=== PATIENT | male | born 1985 | race Two or more races ===

== ENCOUNTER 2016-05-23 09:36 | Inpatient (IN) | payer OTHER ==
[2016-05-23 10:19] VITALS: BMI 22.4
--- NOTE | 2016-05-23 12:24 | HP ---
COWS - Scale Resting Pulse: 1= [place] 81-100 Sweatin=Flushed/Facial Moisture Restless Observation: 1= Difficult to Sit Still Pupil Size: 0= Normal to Room Light Bone or Joint Aches: 2= Severe Diffuse Aches Runny Nose/ Eye Tearin= Runny Nose/Eyes GI Upset > 30mins: 2= Nausea/Diarrhea Tremor Observation: 2= Slight Tremor Visible Yawning Observation: 2= >3x During Session Anxiety or Irritability: 2=Irritable/Anxious Goose Flesh Skin: 3=Piloerection COWS Score: 19 CIWA Score - CIWA Score Nausea/Vomitin-Mild Nausea/No Vomiting Muscle Tremors: 4-Moderate,w/Arms Extend Anxiety: 4-Mod. Anxious/Guarded Agitation: 4-Moderately Restless Paroxysmal Sweats: 3 Orientation: 0-Oriented Tacttile Disturbances: 0-None Auditory Disturbances: 0-None Visual Disturbances: 0-None Headache: 2-Mild CIWA-Ar Total Score: 18 Admission ROS BHS - HPI Chief Complaint: I need help. Allergies/Adverse Reactions: Allergies Allergy/AdvReac Type Severity Reaction Status Date / Time peanut Allergy Intermediate Swelling Verified 05/23/16 11:21 NKDA Allergy Uncoded 05/23/16 11:21 History of Present Illness: pt is a 31yr old male with a history of alcohol and heroin dependence seeking detox for treatment. Exam Limitations: No Limitations - Ebola screening Have you traveled outside of the country in the last 21 days: No Have you had contact with anyone from an Ebola affected area: No Have you been sick,other than usual withdrawal symptoms: No Do you have a fever: No - Review of Systems Constitutional: Chills, Diaphoresis, Loss of Appetite, Night Sweats, Changes in sleep, Unintentional Wgt. Loss EENT: reports: Tearing, Nose Congestion, Other (rash with irritation noted to ear canal.) Respiratory: reports: Cough Cardiac: reports: No Symptoms Reported GI: reports: Constipated, Diarrhea, Nausea, Poor Appetite, Poor Fluid Intake : reports: No Symptoms Reported Musculoskeletal: reports: Back Pain, Joint Pain, Muscle Pain Integumentary: reports: Flushing, Rash (to face.), Sweating Neuro: reports: Headache, Tingling, Tremors Endocrine: reports: Excessive Sweating, Flushing Hematology: reports: No Symptoms Reported Psychiatric: reports: Judgement Intact, Mood/Affect Appropiate, Orientated x3, Agitated, Anxious Other Systems: Reviewed and Negative Patient History - Patient Medical History Hx Anemia: No Hx Asthma: No Hx Chronic Obstructive Pulmonary Disease (COPD): No Hx Cancer: No Hx Cardiac Disorders: No Hx Congestive Heart Failure: No Hx Hypertension: No Hx Hypercholesterolemia: No Hx Pacemaker: No HX Cerebrovascular Accident: No Hx Seizures: No Hx Dementia: No Hx Diabetes: No Hx Gastrointestinal Disorders: No Hx Liver Disease: No Hx Genitourinary Disorders: No Hx Sexually Transmitted Disorders: No Hx Renal Disease (ESRD): No Hx Thyroid Disease: No Hx Human Immunodeficiency Virus (HIV): No (negative) Hx Hepatitis C: No (negative) Hx Depression: Yes Hx Suicide Attempt: No (denies) Hx Bipolar Disorder: No Hx Schizophrenia: No - Patient Surgical History Past Surgical History: No Hx Neurologic Surgery: No Hx Cataract Extraction: No Hx Cardiac Surgery: No Hx Lung Surgery: No Hx Breast Surgery: No Hx Breast Biopsy: No Hx Abdominal Surgery: No Hx Appendectomy: No Hx Cholecystectomy: No Hx Genitourinary Surgery: No Hx Section: No Hx Orthopedic Surgery: No Anesthesia Reaction: No - PPD History Previous Implant?: Yes Documented Results: Negative w/proof Implanted On Prior R Admission?: Yes Date: 02/04/16 Results: 0 mm PPD to be Administered?: No - Reproductive History Patient is a Female of Child Bearing Age (11 -55 yrs old): No - Smoking Cessation Smoking history: Current every day smoker Have you smoked in the past 12 months: Yes Aproximately how many cigarettes per day: 7 Hx Chewing Tobacco Use: No Initiated information on smoking cessation: Yes 'Breaking Loose' booklet given: 05/23/16 - Substance & Tx. History Hx Alcohol Use: Yes Hx Substance Use: Yes Substance Use Type: Alcohol, Heroin - Substances Abused Heroin Route: Inhalation Frequency: Daily Amount used: 15 bags Age of first use: 21 Date of Last Use: 05/22/16 Alcohol-beer/vodka Route: Oral Frequency: Daily Amount used: 2-6 pks./1 pt. Age of first use: 15 Date of Last Use: 05/22/16 Family Disease History - Family Disease History Family Disease History: CA: Mother (breast CA; alcohol depenent ), Other: Father , Mother Admission Physical Exam BHS - Vital Signs Vital Signs: Vital Signs - 24 hr 05/23/16 10:18 Temperature 97.0 F L Pulse Rate 82 Respiratory 18 Rate Blood Pressure 134/76 - Physical General Appearance: Yes: Appropriately Dressed, Moderate Distress, Tremorous, Irritable, Sweating, Anxious HEENTM: Yes: Normal Voice, Nasal Congestion, Rhinorrhea Respiratory: Yes: Lungs Clear, Normal Breath Sounds, No Respiratory Distress Neck: Yes: Within Normal Limits Breast: Yes: Within Normal Limits Cardiology: Yes: Regular Rhythm, Regular Rate, S1, S2 Abdominal: Yes: Normal Bowel Sounds, Non Tender, Soft Genitourinary: Yes: Within Normal Limits Back: Yes: Normal Inspection Musculoskeletal: Yes: full range of Motion, Back pain, Muscle Pain Extremities: Yes: Non-Tender, Tremors Neurological: Yes: Fully Oriented, Alert, Normal Response Integumentary: Yes: Normal Color, Diaphoresis Lymphatic: Yes: Within Normal Limits - Diagnostic (1) Rash of face Current Visit: Yes Status: Acute (2) Alcohol dependence with uncomplicated withdrawal Current Visit: Yes Status: Chronic (3) Nicotine dependence Current Visit: Yes Status: Chronic Qualifiers: Nicotine product type: cigarettes Substance use status: uncomplicated Qualified Code(s): F17.210 - Nicotine dependence, cigarettes, uncomplicated (4) Opioid dependence with withdrawal Current Visit: Yes Status: Chronic (5) Skin rash Current Visit: Yes Status: Acute Comment: to ear canal Cleared for Admission [facility] - Detox or Rehab [facility] Level of Care: Medically Managed Detox Regimen/Protocol: Methadone/Librium [facility] Breath Alcohol Content Breath Alcohol Content: 0 Urine Drug Screen - Results Drug Screen Negative: No Urine Drug Screen Results: OPI-Opiates
[2016-05-23] MEDS ORDERED: chlordiazePOXIDE HCL 25 MG CAPSULE PO ONE (12:30)
[2016-05-23] MEDS ORDERED: guaiFENesin/D-METHORPHAN HB 10 ML UNIT-DOSE CUPS PO PRN (12:30)
[2016-05-23] MEDS ORDERED: NICOTINE POLACRILEX 4 MG GUM BC PRN (12:30)
[2016-05-23] MEDS ORDERED: MENTHOL/PHENOL 1 EACH UD MM PRN (12:30)
[2016-05-23] MEDS ORDERED: ACETAMINOPHEN 325 MG TABLET (FP) PO PRN (12:30)
[2016-05-23] MEDS ORDERED: P-EPHED 60MG/TRIPROLIDI 2.5MG TABLET PO PRN (12:30)
[2016-05-23] MEDS ORDERED: METHADONE HCL 10 MG TABLET (FOR DETOX USE ONLY) PO ONE ×2 (12:30→23:00)
[2016-05-23] MEDS ORDERED: IBUPROFEN 400 MG TABLET (FP) PO PRN (12:30)
[2016-05-23] MEDS ORDERED: MAGNESIUM HYDROX 2400MG/30ML ORAL SUSPENSION 30 ML CUP PO PRN (12:30)
[2016-05-23] MEDS ORDERED: MAGNESIUM CITRATE 300 ML BOTTLE PO PRN (12:30)
[2016-05-23] MEDS ORDERED: chlordiazePOXIDE HCL 25 MG CAPSULE PO PRN (12:30)
[2016-05-23] MEDS ORDERED: TRIMETHOBENZAMIDE HCL 300 MG CAPSULE PO PRN (12:31)
[2016-05-23] MEDS ORDERED: CYCLOBENZAPRINE HCL 10 MG TABLET (FP) PO ONE (15:48)
[2016-05-23] MEDS ORDERED: CYCLOBENZAPRINE HCL 10 MG TABLET (FP) ONE (15:55)
--- NOTE | 2016-05-23 16:20 | EKG ---
Test Reason : Blood Pressure : / mmHG Vent. Rate : 073 BPM Atrial Rate : 073 BPM P-R Int : 156 ms QRS Dur : 088 ms QT Int : 402 ms P-R-T Axes : 049 020 025 degrees QTc Int : 442 ms NORMAL SINUS RHYTHM WITH SINUS ARRHYTHMIA NORMAL ECG NO PREVIOUS ECGS AVAILABLE Confirmed by YOSELIN WEST, KODY ([id number]) on 05/23/2016 4:19:47 PM Referred By: Chris Hallman Confirmed By:KODY WYATT MD
[2016-05-23] MEDS: chlordiazePOXIDE HCL 25 MG CAPSULE PO SCH ×2 (17:16→22:36)
[2016-05-23 20:28] LABS: URINE APPEARANCE CLEAR; URINE BILIRUBIN NEGATIVE (NEGATIVE); URINE BLOOD NEGATIVE (NEGATIVE); URINE COLOR LTYELLOW; URINE GLUCOSE (UA) NEGATIVE (NEGATIVE); URINE KETONE NEGATIVE (NEGATIVE); URINE LEUK ESTERASE NEGATIVE (NEGATIVE); URINE NITRITE NEGATIVE (NEGATIVE); URINE PROTEIN NEGATIVE (NEGATIVE); URINE UROBILINOGEN NEGATIVE E.U./dl (0.2-1.0)
[2016-05-23] MEDS: THIAMINE HCL 100 MG TABLET (FP) PO SCH (22:36)
[2016-05-23] MEDS: diphenhydrAMINE HCL 50 MG CAPSULE PO PRN (22:37)
[2016-05-23] MEDS: CYCLOBENZAPRINE HCL 10 MG TABLET (FP) PO PRN (22:40)
[2016-05-24] MEDS: chlordiazePOXIDE HCL 25 MG CAPSULE PO SCH ×4 (05:43→22:19)
[2016-05-24] MEDS: MAG HYDROX/AL HYDROX/SIMETH 30 ML UNIT-DOSE CUP PO PRN (05:45)
[2016-05-24] MEDS: CYCLOBENZAPRINE HCL 10 MG TABLET (FP) PO PRN (05:47)
[2016-05-24 09:47] LABS: MCH 31.1 pg (25.7-33.7); MEAN CELL VOLUME 91.4 fl (80-96); MEAN PLT VOLUME 10.7 fl (7.5-11.1); PLATELET COUNT 217 K/MM3 (134-434); RDW 13.7 % (11.9-15.9); WHITE BLOOD COUNT 6.9 K/mm3 (4.0-10.0)
[2016-05-24] MEDS ORDERED: METHADONE HCL 10 MG TABLET (FOR DETOX USE ONLY) PO SCH (10:00)
[2016-05-24] MEDS: PRENATAL VITAMINS W/ FOLIC ACID TABLET (FP) PO SCH (10:24)
[2016-05-24 10:36] LABS: HIV 1 & 2 AB NEGATIVE; HIV 1 AGp24 NEGATIVE
[2016-05-24] MEDS ORDERED: ONDANSETRON *ODT* 4 MG TABLET SL PRN (10:49)
[2016-05-24 11:12] LABS: ALK PHOS 110 U/L (45-117); ANION GAP 9 (8-16); CALCIUM 9.2 mg/dL (8.5-10.1); CO2 27 mmol/L (21-32); CREATININE 0.8 mg/dL (0.7-1.3); GLUCOSE,RANDOM 136 mg/dL (74-106); SGOT/AST 81 U/L (15-37); SGPT/ALT 99 U/L (12-78); TOT PROT 8.2 g/dl (6.4-8.2)
--- NOTE | 2016-05-24 13:50 | PN ---
S CIWA - CIWA Score Nausea/Vomitin Muscle Tremors: None Anxiety: 4-Mod. Anxious/Guarded Agitation: 2 Paroxysmal Sweats: 3 Orientation: 0-Oriented Tacttile Disturbances: 2-Mild Itch/Numbness/Burn Auditory Disturbances: 2-Mild Harshness/Frighten Visual Disturbances: 0-None Headache: 3-Moderate CIWA-Ar Total Score: 21 BHS COWS - Scale Resting Pulse: 1= [place] 81-100 Sweatin= Chills/Flushing Restless Observation: 1= Difficult to Sit Still Pupil Size: 1= Pupils >than Normal Bone or Joint Aches: 2= Severe Diffuse Aches Runny Nose/ Eye Tearin= Nasal Congestion GI Upset > 30mins: 3= Vomiting/Diarrhea Tremor Observation of Outstretched Hands: 2= Slight Tremor Visible Yawning Observation: 0= None Anxiety or Irritability: 2=Irritable/Anxious Goose Flesh Skin: 3=Piloerection COWS Score: 17 BHS Progress Note (SOAP) Subjective: Vomiting, Diarrhea, H/A, Interrupted sleep, Body Aches, Sweating. Objective: PT. A & O X 3. 05/24/16 13:49 Vital Signs Temperature 96.1 F L 05/24/16 10:39 Pulse Rate 91 H 05/24/16 10:39 Respiratory Rate 18 05/24/16 10:39 Blood Pressure 110/75 05/24/16 10:39 O2 Sat by Pulse Oximetry (%) Laboratory Last Values WBC 6.9 K/mm3 (4.0-10.0) 05/24/16 06:00 RBC 5.10 M/mm3 (4.00-5.60) 05/24/16 06:00 Hgb 15.8 GM/dL (11.7-16.9) 05/24/16 06:00 Hct 46.6 % (35.4-49) 05/24/16 06:00 MCV 91.4 fl (80-96) 05/24/16 06:00 MCHC 34.0 g/dl (32.0-35.9) 05/24/16 06:00 RDW 13.7 % (11.9-15.9) 05/24/16 06:00 Plt Count 217 K/MM3 (134-434) D 05/24/16 06:00 MPV 10.7 fl (7.5-11.1) 05/24/16 06:00 Sodium 139 mmol/L (136-145) 05/24/16 06:00 Potassium 4.3 mmol/L (3.5-5.1) 05/24/16 06:00 Chloride 103 mmol/L (98-107) 05/24/16 06:00 Carbon Dioxide 27 mmol/L (21-32) 05/24/16 06:00 Anion Gap 9 (8-16) 05/24/16 06:00 BUN 9 mg/dL (7-18) 05/24/16 06:00 Creatinine 0.8 mg/dL (0.7-1.3) D 05/24/16 06:00 Creat Clearance w eGFR > 60 (>60) 05/24/16 06:00 Random Glucose 136 mg/dL (74-106) H D 05/24/16 06:00 Calcium 9.2 mg/dL (8.5-10.1) 05/24/16 06:00 Total Bilirubin 1.0 mg/dL (0.2-1.0) 05/24/16 06:00 AST 81 U/L (15-37) H D 05/24/16 06:00 ALT 99 U/L (12-78) H 05/24/16 06:00 Alkaline Phosphatase 110 U/L (45-117) D 05/24/16 06:00 Total Protein 8.2 g/dl (6.4-8.2) 05/24/16 06:00 Albumin 4.0 g/dl (3.4-5.0) 05/24/16 06:00 Urine Color Ltyellow 05/23/16 14:37 Urine Appearance Clear 05/23/16 14:37 Urine pH 7.0 (5.0-8.0) 05/23/16 14:37 Ur Specific [place] 1.012 (1.001-1.035) 05/23/16 14:37 Urine Protein Negative (NEGATIVE) 05/23/16 14:37 Urine Glucose (UA) Negative (NEGATIVE) 05/23/16 14:37 Urine Ketones Negative (NEGATIVE) 05/23/16 14:37 Urine Blood Negative (NEGATIVE) 05/23/16 14:37 Urine Nitrite Negative (NEGATIVE) 05/23/16 14:37 Urine Bilirubin Negative (NEGATIVE) 05/23/16 14:37 Urine Urobilinogen Negative E.U./dl (0.2-1.0) 05/23/16 14:37 Ur Leukocyte Esterase Negative (NEGATIVE) 05/23/16 14:37 RPR Titer Nonreactive (NONREACTIVE) 05/24/16 06:00 HIV 1&2 Antibody Screen Negative 05/23/16 11:30 HIV P24 Antigen Negative 05/23/16 11:30 LABS NOTED. Assessment: 05/24/16 13:50 WITHDRAWAL SYMPTOMS. Plan: CONTINUE DETOX. ADVISED PATIENT TO FOLLOW-UP WITH CABLE WORKER HELPER / REHAB MEDICAL PROVIDER AFTER DISCHARGE FROM DETOX FOR GENERAL MEDICAL ASSESSMENT AND FOR ANY ABNORMAL ADMISSION LAB VALUES.
[2016-05-24 14:14] LABS: URINE APPEARANCE CLEAR; URINE BILIRUBIN NEGATIVE (NEGATIVE); URINE BLOOD NEGATIVE (NEGATIVE); URINE COLOR YELLOW; URINE GLUCOSE (UA) NEGATIVE (NEGATIVE); URINE KETONE NEGATIVE (NEGATIVE); URINE LEUK ESTERASE NEGATIVE (NEGATIVE); URINE NITRITE NEGATIVE (NEGATIVE); URINE PROTEIN NEGATIVE (NEGATIVE); URINE UROBILINOGEN NEGATIVE E.U./dl (0.2-1.0)
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
[2016-05-24] MEDS: HYDROCORTISONE 2.5% LOTION - 1 BOTTLE TP PRN (17:30)
[2016-05-24] MEDS: THIAMINE HCL 100 MG TABLET (FP) PO SCH (22:19)
[2016-05-24] MEDS: QUEtiapine FUMARATE 100 MG TABLET (FP) PO SCH (22:19)
[2016-05-24] MEDS: ZOLPIDEM TARTRATE 10 MG TABLET (PARK CARE ONLY) PO PRN (22:19)
[2016-05-25] MEDS: chlordiazePOXIDE HCL 25 MG CAPSULE PO SCH ×2 (05:32→10:20)
[2016-05-25] MEDS: CYCLOBENZAPRINE HCL 10 MG TABLET (FP) PO PRN (05:33)
[2016-05-25] MEDS: PRENATAL VITAMINS W/ FOLIC ACID TABLET (FP) PO SCH (10:20)
[2016-05-25] MEDS: METHADONE HCL 5 MG TABLET (FOR DETOX USE ONLY) PO SCH (10:20)
[2016-05-25] MEDS ORDERED: COLLOIDAL OATMEAL 1 BAR EACH TP PRN (11:48)
[2016-05-25] MEDS: CYCLOBENZAPRINE HCL 10 MG TABLET (FP) PO SCH ×2 (13:38→22:19)
[2016-05-25] MEDS: HYDROCORTISONE 2.5% LOTION - 1 BOTTLE TP PRN (15:27)
--- NOTE | 2016-05-25 15:34 | PN ---
[facility] CIWA - CIWA Score Nausea/Vomitin Muscle Tremors: 3 Anxiety: 4-Mod. Anxious/Guarded Agitation: 4-Moderately Restless Paroxysmal Sweats: 3 Orientation: 0-Oriented Tacttile Disturbances: 3-Moderate Itch/Numb/Burn Auditory Disturbances: 0-None Visual Disturbances: 2-Mild Sensitivity Headache: 0-None Present CIWA-Ar Total Score: 21 BHS COWS - Scale Resting Pulse: 1= [place] 81-100 Sweatin= Chills/Flushing Restless Observation: 1= Difficult to Sit Still Pupil Size: 0= Normal to Room Light Bone or Joint Aches: 2= Severe Diffuse Aches Runny Nose/ Eye Tearin= Runny Nose/Eyes GI Upset > 30mins: 0= None Tremor Observation of Outstretched Hands: 2= Slight Tremor Visible Yawning Observation: 1= 1-2x During Session Anxiety or Irritability: 2=Irritable/Anxious Goose Flesh Skin: 3=Piloerection COWS Score: 15 S Progress Note (SOAP) Subjective: Sweating, Tremors, Anxious, Body Aches. Pt. reporting skin irritation on face X approx. 6 days, which he describes as having a "burning" feeling. Objective: PT. A & O X 3 , OBSERVED AMBULATING ON UNIT. NO BLEEDING OR UNUSUAL DISCHARGE NOTED ON FACE. PT. DENIES ANY RECENT SICK CONTACT OR CHANGE IN SOAP. 05/25/16 15:30 Vital Signs Temperature 96.6 F L 05/25/16 13:33 Pulse Rate 82 05/25/16 13:33 Respiratory Rate 20 05/25/16 13:33 Blood Pressure 128/82 05/25/16 13:33 O2 Sat by Pulse Oximetry (%) Laboratory Last Values WBC 6.9 K/mm3 (4.0-10.0) 05/24/16 06:00 RBC 5.10 M/mm3 (4.00-5.60) 05/24/16 06:00 Hgb 15.8 GM/dL (11.7-16.9) 05/24/16 06:00 Hct 46.6 % (35.4-49) 05/24/16 06:00 MCV 91.4 fl (80-96) 05/24/16 06:00 MCHC 34.0 g/dl (32.0-35.9) 05/24/16 06:00 RDW 13.7 % (11.9-15.9) 05/24/16 06:00 Plt Count 217 K/MM3 (134-434) D 05/24/16 06:00 MPV 10.7 fl (7.5-11.1) 05/24/16 06:00 Sodium 139 mmol/L (136-145) 05/24/16 06:00 Potassium 4.3 mmol/L (3.5-5.1) 05/24/16 06:00 Chloride 103 mmol/L (98-107) 05/24/16 06:00 Carbon Dioxide 27 mmol/L (21-32) 05/24/16 06:00 Anion Gap 9 (8-16) 05/24/16 06:00 BUN 9 mg/dL (7-18) 05/24/16 06:00 Creatinine 0.8 mg/dL (0.7-1.3) D 05/24/16 06:00 Creat Clearance w eGFR > 60 (>60) 05/24/16 06:00 Random Glucose 136 mg/dL (74-106) H D 05/24/16 06:00 Calcium 9.2 mg/dL (8.5-10.1) 05/24/16 06:00 Total Bilirubin 1.0 mg/dL (0.2-1.0) 05/24/16 06:00 AST 81 U/L (15-37) H D 05/24/16 06:00 ALT 99 U/L (12-78) H 05/24/16 06:00 Alkaline Phosphatase 110 U/L (45-117) D 05/24/16 06:00 Total Protein 8.2 g/dl (6.4-8.2) 05/24/16 06:00 Albumin 4.0 g/dl (3.4-5.0) 05/24/16 06:00 Urine Color Yellow 05/24/16 11:40 Urine Appearance Clear 05/24/16 11:40 Urine pH 7.0 (5.0-8.0) 05/24/16 11:40 Ur Specific [place] 1.015 (1.001-1.035) 05/24/16 11:40 Urine Protein Negative (NEGATIVE) 05/24/16 11:40 Urine Glucose (UA) Negative (NEGATIVE) 05/24/16 11:40 Urine Ketones Negative (NEGATIVE) 05/24/16 11:40 Urine Blood Negative (NEGATIVE) 05/24/16 11:40 Urine Nitrite Negative (NEGATIVE) 05/24/16 11:40 Urine Bilirubin Negative (NEGATIVE) 05/24/16 11:40 Urine Urobilinogen Negative E.U./dl (0.2-1.0) 05/24/16 11:40 Ur Leukocyte Esterase Negative (NEGATIVE) 05/24/16 11:40 RPR Titer Nonreactive (NONREACTIVE) 05/24/16 06:00 HIV 1&2 Antibody Screen Negative 05/23/16 11:30 HIV P24 Antigen Negative 05/23/16 11:30 LABS NOTED. 05/25/16 15:33 05/25/16 15:35 Assessment: 05/25/16 15:31 WITHDRAWAL SYMPTOMS. Plan: CONTINUE DETOX. ADVISED PATIENT TO FOLLOW-UP WITH SALES EXECUTIVE / REHAB MEDICAL PROVIDER AFTER DISCHARGER FROM DETOX FOR GENERAL MEDICAL ASSESSMENT AND FOR ABNORMAL ADMISSION LAB VALUES , AND FOR SKIN IRRITATION ON FACE.
[2016-05-25] MEDS: chlordiazePOXIDE 5 MG CAPSULE PO SCH ×2 (17:28→22:19)
[2016-05-25] MEDS: hydrOXYzine PAMOATE 50 MG CAPSULE (FP) PO PRN (18:21)
[2016-05-25] MEDS: QUEtiapine FUMARATE 100 MG TABLET (FP) PO SCH (22:19)
[2016-05-25] MEDS: THIAMINE HCL 100 MG TABLET (FP) PO SCH (22:19)
[2016-05-25] MEDS: ZOLPIDEM TARTRATE 10 MG TABLET (PARK CARE ONLY) PO PRN (22:19)
[2016-05-26] MEDS: CYCLOBENZAPRINE HCL 10 MG TABLET (FP) PO SCH ×3 (05:49→22:15)
[2016-05-26] MEDS: chlordiazePOXIDE 5 MG CAPSULE PO SCH ×2 (05:49→10:16)
[2016-05-26] MEDS: METHADONE HCL 5 MG TABLET (FOR DETOX USE ONLY) PO SCH (10:16)
[2016-05-26] MEDS: PRENATAL VITAMINS W/ FOLIC ACID TABLET (FP) PO SCH (10:16)
--- NOTE | 2016-05-26 16:16 | PN ---
S Progress Note (SOAP) Subjective: Anxiety, diarrhea, body aches, interrupted sleep, muscle spasm Objective: 05/26/16 16:15 Last Vital Signs Temp Pulse Resp BP Pulse Ox 97 F L 70 20 105/77 05/26/16 14:01 05/26/16 14:01 05/26/16 14:01 05/26/16 14:01 Laboratory Tests 05/23/16 05/23/16 05/24/16 11:30 14:37 06:00 WBC 6.9 RBC 5.10 Hgb 15.8 Hct 46.6 MCV 91.4 MCHC 34.0 RDW 13.7 Plt Count 217 D MPV 10.7 Sodium Potassium Chloride Carbon Dioxide Anion Gap BUN Creatinine Creat Clearance w eGFR Random Glucose Calcium Total Bilirubin AST ALT Alkaline Phosphatase Total Protein Albumin Urine Color Ltyellow Urine Appearance Clear Urine pH 7.0 Ur Specific [place] 1.012 Urine Protein Negative Urine Glucose (UA) Negative Urine Ketones Negative Urine Blood Negative Urine Nitrite Negative Urine Bilirubin Negative Urine Urobilinogen Negative Ur Leukocyte Esterase Negative RPR Titer HIV 1&2 Antibody Screen Negative HIV P24 Antigen Negative 05/24/16 05/24/16 05/24/16 06:00 06:00 11:40 WBC RBC Hgb Hct MCV MCHC RDW Plt Count MPV Sodium 139 Potassium 4.3 Chloride 103 Carbon Dioxide 27 Anion Gap 9 BUN 9 Creatinine 0.8 D Creat Clearance w eGFR > 60 Random Glucose 136 H D Calcium 9.2 Total Bilirubin 1.0 AST 81 H D ALT 99 H Alkaline Phosphatase 110 D Total Protein 8.2 Albumin 4.0 Urine Color Yellow Urine Appearance Clear Urine pH 7.0 Ur Specific [place] 1.015 Urine Protein Negative Urine Glucose (UA) Negative Urine Ketones Negative Urine Blood Negative Urine Nitrite Negative Urine Bilirubin Negative Urine Urobilinogen Negative Ur Leukocyte Esterase Negative RPR Titer Nonreactive HIV 1&2 Antibody Screen HIV P24 Antigen Labs noted Assessment: 05/26/16 16:16 Withdrawal symptoms Plan: Continue detox
[2016-05-26] MEDS: chlordiazePOXIDE HCL 10 MG CAPSULE PO SCH ×2 (17:23→22:15)
[2016-05-26] MEDS: hydrOXYzine PAMOATE 50 MG CAPSULE (FP) PO PRN (19:37)
[2016-05-26] MEDS: ZOLPIDEM TARTRATE 10 MG TABLET (PARK CARE ONLY) PO PRN (22:15)
[2016-05-26] MEDS: QUEtiapine FUMARATE 100 MG TABLET (FP) PO SCH (22:15)
[2016-05-26] MEDS: THIAMINE HCL 100 MG TABLET (FP) PO SCH (22:15)
[2016-05-27] MEDS: LOPERAMIDE HCL 2 MG CAPSULE PO PRN ×2 (02:40→13:15)
[2016-05-27] MEDS: chlordiazePOXIDE HCL 10 MG CAPSULE PO SCH ×2 (05:49→10:20)
[2016-05-27] MEDS: CYCLOBENZAPRINE HCL 10 MG TABLET (FP) PO SCH ×3 (05:49→22:28)
[2016-05-27] MEDS ORDERED: METHADONE HCL 10 MG TABLET (FOR DETOX USE ONLY) PO SCH (10:00)
[2016-05-27] MEDS: PRENATAL VITAMINS W/ FOLIC ACID TABLET (FP) PO SCH (10:20)
[2016-05-27] MEDS: hydrOXYzine PAMOATE 50 MG CAPSULE (FP) PO PRN (13:15)
--- NOTE | 2016-05-27 13:26 | PN ---
BHS Progress Note (SOAP) Subjective: Sweating,interrupted sleep,restless Objective: 05/27/16 13:25 Vital Signs - 8 hr 05/27/16 05/27/16 05/27/16 06:32 09:52 13:02 Temperature 95.9 F L 96 F L 97 F L Pulse Rate 106 H 108 H 105 H Respiratory 18 18 18 Rate Blood Pressure 96/64 101/67 109/75 Laboratory Tests 05/23/16 05/23/16 05/24/16 11:30 14:37 06:00 WBC 6.9 RBC 5.10 Hgb 15.8 Hct 46.6 MCV 91.4 MCHC 34.0 RDW 13.7 Plt Count 217 D MPV 10.7 Sodium Potassium Chloride Carbon Dioxide Anion Gap BUN Creatinine Creat Clearance w eGFR Random Glucose Calcium Total Bilirubin AST ALT Alkaline Phosphatase Total Protein Albumin Urine Color Ltyellow Urine Appearance Clear Urine pH 7.0 Ur Specific [place] 1.012 Urine Protein Negative Urine Glucose (UA) Negative Urine Ketones Negative Urine Blood Negative Urine Nitrite Negative Urine Bilirubin Negative Urine Urobilinogen Negative Ur Leukocyte Esterase Negative RPR Titer HIV 1&2 Antibody Screen Negative HIV P24 Antigen Negative 05/24/16 05/24/16 05/24/16 06:00 06:00 11:40 WBC RBC Hgb Hct MCV MCHC RDW Plt Count MPV Sodium 139 Potassium 4.3 Chloride 103 Carbon Dioxide 27 Anion Gap 9 BUN 9 Creatinine 0.8 D Creat Clearance w eGFR > 60 Random Glucose 136 H D Calcium 9.2 Total Bilirubin 1.0 AST 81 H D ALT 99 H Alkaline Phosphatase 110 D Total Protein 8.2 Albumin 4.0 Urine Color Yellow Urine Appearance Clear Urine pH 7.0 Ur Specific [place] 1.015 Urine Protein Negative Urine Glucose (UA) Negative Urine Ketones Negative Urine Blood Negative Urine Nitrite Negative Urine Bilirubin Negative Urine Urobilinogen Negative Ur Leukocyte Esterase Negative RPR Titer Nonreactive HIV 1&2 Antibody Screen HIV P24 Antigen labs noted Assessment: 05/27/16 13:25 Withdrawal sx. Plan: Continue detox
[2016-05-27] MEDS: QUEtiapine FUMARATE 100 MG TABLET (FP) PO SCH (22:28)
[2016-05-27] MEDS: THIAMINE HCL 100 MG TABLET (FP) PO SCH (22:28)
[2016-05-27] MEDS: diphenhydrAMINE HCL 50 MG CAPSULE PO PRN (22:29)
[2016-05-27] MEDS: MAG HYDROX/AL HYDROX/SIMETH 30 ML UNIT-DOSE CUP PO PRN (22:31)
[2016-05-28] MEDS: CYCLOBENZAPRINE HCL 10 MG TABLET (FP) PO SCH (05:47)
[2016-05-28] MEDS ORDERED: METHADONE HCL 5 MG TABLET (FOR DETOX USE ONLY) PO SCH (06:00)
[2016-05-28] MEDS ORDERED: DIPHENOXYLATE 2.5/ATROPINE.025 1 COMBO TABLET PO ONE (08:18)
[2016-05-28] MEDS: PRENATAL VITAMINS W/ FOLIC ACID TABLET (FP) PO SCH (09:04)
[2016-05-28] MEDS: HYDROCORTISONE 2.5% LOTION - 1 BOTTLE TP PRN (09:04)
--- NOTE | 2016-05-28 09:07 | DS ---
[facility] Detox Discharge Summary Admission Date: 05/23/16 Discharge Date: 05/28/16 - History Present History: Alcohol Dependence, Opioid Dependence Additional Comments: DETOX COMPLETED. ALERT O X 3. NAD. Pertinent Past History: SKIN RASH TO EAR CANAL DEPRESSION INSOMNIA - Physical Exam Results Vital Signs: Vital Signs Temperature 97.9 F 05/28/16 06:20 Pulse Rate 104 H 05/28/16 06:20 Respiratory Rate 16 05/28/16 06:20 Blood Pressure 101/65 05/28/16 06:20 O2 Sat by Pulse Oximetry (%) Pertinent Admission Physical Exam Findings: WITHDRAWAL SX Laboratory Last Values WBC 6.9 K/mm3 (4.0-10.0) 05/24/16 06:00 RBC 5.10 M/mm3 (4.00-5.60) 05/24/16 06:00 Hgb 15.8 GM/dL (11.7-16.9) 05/24/16 06:00 Hct 46.6 % (35.4-49) 05/24/16 06:00 MCV 91.4 fl (80-96) 05/24/16 06:00 MCHC 34.0 g/dl (32.0-35.9) 05/24/16 06:00 RDW 13.7 % (11.9-15.9) 05/24/16 06:00 Plt Count 217 K/MM3 (134-434) D 05/24/16 06:00 MPV 10.7 fl (7.5-11.1) 05/24/16 06:00 Sodium 139 mmol/L (136-145) 05/24/16 06:00 Potassium 4.3 mmol/L (3.5-5.1) 05/24/16 06:00 Chloride 103 mmol/L (98-107) 05/24/16 06:00 Carbon Dioxide 27 mmol/L (21-32) 05/24/16 06:00 Anion Gap 9 (8-16) 05/24/16 06:00 BUN 9 mg/dL (7-18) 05/24/16 06:00 Creatinine 0.8 mg/dL (0.7-1.3) D 05/24/16 06:00 Creat Clearance w eGFR > 60 (>60) 05/24/16 06:00 Random Glucose 136 mg/dL (74-106) H D 05/24/16 06:00 Calcium 9.2 mg/dL (8.5-10.1) 05/24/16 06:00 Total Bilirubin 1.0 mg/dL (0.2-1.0) 05/24/16 06:00 AST 81 U/L (15-37) H D 05/24/16 06:00 ALT 99 U/L (12-78) H 05/24/16 06:00 Alkaline Phosphatase 110 U/L (45-117) D 05/24/16 06:00 Total Protein 8.2 g/dl (6.4-8.2) 05/24/16 06:00 Albumin 4.0 g/dl (3.4-5.0) 05/24/16 06:00 Urine Color Yellow 05/24/16 11:40 Urine Appearance Clear 05/24/16 11:40 Urine pH 7.0 (5.0-8.0) 05/24/16 11:40 Ur Specific [place] 1.015 (1.001-1.035) 05/24/16 11:40 Urine Protein Negative (NEGATIVE) 05/24/16 11:40 Urine Glucose (UA) Negative (NEGATIVE) 05/24/16 11:40 Urine Ketones Negative (NEGATIVE) 05/24/16 11:40 Urine Blood Negative (NEGATIVE) 05/24/16 11:40 Urine Nitrite Negative (NEGATIVE) 05/24/16 11:40 Urine Bilirubin Negative (NEGATIVE) 05/24/16 11:40 Urine Urobilinogen Negative E.U./dl (0.2-1.0) 05/24/16 11:40 Ur Leukocyte Esterase Negative (NEGATIVE) 05/24/16 11:40 RPR Titer Nonreactive (NONREACTIVE) 05/24/16 06:00 HIV 1&2 Antibody Screen Negative 05/23/16 11:30 HIV P24 Antigen Negative 05/23/16 11:30 - Treatment Hospital Course: Detox Protocol Followed, Detoxed Safely, Responded well, Discharged Condition Good, Rehab Referral Accepted Patient has Accepted a Rehab Referral to: [facility] - Medication Discharge Medications: Ambulatory Orders Quetiapine Fumarate [Seroquel] 100 mg PO HS #30 tablet 05/24/16 - Diagnosis (1) Alcohol dependence with uncomplicated withdrawal Current Visit: Yes Status: Acute (2) Opioid dependence with withdrawal Current Visit: Yes Status: Acute (3) Nicotine dependence Current Visit: Yes Status: Acute Qualifiers: Nicotine product type: cigarettes Substance use status: in withdrawal Qualified Code(s): F17.213 - Nicotine dependence, cigarettes, with withdrawal (4) Drug-induced mood disorder Current Visit: Yes Status: Acute (5) Insomnia Current Visit: Yes Status: Acute - AMA Did Patient Leave Against Medical Advice: No
[2016-05-28] MEDS: hydrOXYzine PAMOATE 50 MG CAPSULE (FP) PO PRN (09:08)
[2016-05-28 10:07] VITALS: BP 101/69; PULSE 120; TEMP 96.5
== END 2016-05-28 10:12 | disposition home or self-care (01) | DRG 773 ==
LOC: YASAS 09:36 → Y3N 11:57
PROVIDERS: ADMIT Internal Medicine; ATTEND Internal Medicine
PROC: HZ2ZZZZ Detoxification Services for Substance Abuse Treatment (ICD-10-PCS; principal; 2016-05-28)
DX: F11.23 Opioid dependence with withdrawal (principal); F10.230 Alcohol dependence with withdrawal, uncomplicated; F17.213 Nicotine dependence, cigarettes, with withdrawal; F19.24 Other psychoactive substance dependence with psychoactive substance-induced mood disorder; F43.10 Post-traumatic stress disorder, unspecified; G47.00 Insomnia, unspecified; R21 Rash and other nonspecific skin eruption
CPT/HCPCS: 36415; 80053; 81003; 85027; 86593; 87389; 93005; 93010

== ENCOUNTER 2016-07-11 09:35 | Inpatient (IN) | payer OTHER ==
[2016-07-11 12:03] VITALS: BMI 22.1
--- NOTE | 2016-07-11 13:27 | HP ---
COWS - Scale Resting Pulse: 1= TN 81-100 Sweatin=Flushed/Facial Moisture Restless Observation: 3= Extraneous Movement Pupil Size: 2= Moderately Dilated Bone or Joint Aches: 2= Severe Diffuse Aches Runny Nose/ Eye Tearin= Runny Nose/Eyes GI Upset > 30mins: 3= Vomiting/Diarrhea Tremor Observation: 2= Slight Tremor Visible Yawning Observation: 2= >3x During Session Anxiety or Irritability: 2=Irritable/Anxious Goose Flesh Skin: 0=Smooth Skin COWS Score: 21 CIWA Score - CIWA Score Nausea/Vomitin Muscle Tremors: 3 Anxiety: 3 Agitation: 3 Paroxysmal Sweats: 2 Orientation: 0-Oriented Tacttile Disturbances: 2-Mild Itch/Numbness/Burn Auditory Disturbances: 2-Mild Harshness/Frighten Visual Disturbances: 2-Mild Sensitivity Headache: 2-Mild CIWA-Ar Total Score: 22 Admission ROS BHS - HPI Chief Complaint: I NEED HELP TO STOP USING HEROIN AND ALCOHOL Allergies/Adverse Reactions: Allergies Allergy/AdvReac Type Severity Reaction Status Date / Time peanut Allergy Intermediate Swelling Verified 07/11/16 13:18 No Known Drug Allergies Allergy Verified 07/11/16 13:18 NKDA Allergy Uncoded 07/11/16 13:18 History of Present Illness: THIS 31 YEARS OLD MALE WITH HEROIN AND ALCOHOL DEPENDENCE,SEEKING HELP TO COME IN FOR DETOX,LAST DETOX 05/23/16 TO 05/28/16 [facility] SEVERAL ADMISSIONS IN THE PAST BUT RELAPSED LONGES PERIOD OF SOBRIETY 3 YEARS Exam Limitations: No Limitations - Ebola screening Have you traveled outside of the country in the last 21 days: No Have you had contact with anyone from an Ebola affected area: No Have you been sick,other than usual withdrawal symptoms: No - Review of Systems Constitutional: Loss of Appetite, Malaise, Night Sweats, Changes in sleep, Weakness, Unintentional Wgt. Loss EENT: reports: Tearing, Nose Congestion Respiratory: reports: No Symptoms reported Cardiac: reports: Palpitations GI: reports: Diarrhea, Nausea, Vomiting, Abdominal cramping Musculoskeletal: reports: Back Pain, Joint Pain, Muscle Pain, Joint Stiffness Integumentary: reports: Dryness Neuro: reports: Headache, Tremors Endocrine: reports: No Symptoms Reported Hematology: reports: No Symptoms Reported Psychiatric: reports: Depressed Patient History - Patient Medical History Hx Anemia: No Hx Asthma: No Hx Chronic Obstructive Pulmonary Disease (COPD): No Hx Cancer: No Hx Cardiac Disorders: No Hx Congestive Heart Failure: No Hx Hypertension: No Hx Hypercholesterolemia: No Hx Pacemaker: No HX Cerebrovascular Accident: No Hx Seizures: No Hx Dementia: No Hx Diabetes: No Hx Gastrointestinal Disorders: No Hx Liver Disease: No Hx Genitourinary Disorders: No Hx Sexually Transmitted Disorders: No Hx Renal Disease (ESRD): No Hx Thyroid Disease: No Hx Human Immunodeficiency Virus (HIV): No (negative) Hx Hepatitis C: No (negative) Hx Depression: Yes Hx Suicide Attempt: No (denies) Hx Bipolar Disorder: No Hx Schizophrenia: No Other Medical History: NO SUIC IDAL,NO HOMICIDAL - Patient Surgical History Past Surgical History: No Hx Neurologic Surgery: No Hx Cataract Extraction: No Hx Cardiac Surgery: No Hx Lung Surgery: No Hx Breast Surgery: No Hx Breast Biopsy: No Hx Abdominal Surgery: No Hx Appendectomy: No Hx Cholecystectomy: No Hx Genitourinary Surgery: No Hx Section: No Hx Orthopedic Surgery: No Anesthesia Reaction: No - PPD History Previous Implant?: Yes Documented Results: Negative w/proof Date: 02/04/16 Results: 0 mm PPD to be Administered?: No - Smoking Cessation Smoking history: Current every day smoker Have you smoked in the past 12 months: Yes Aproximately how many cigarettes per day: 7 Hx Chewing Tobacco Use: No Initiated information on smoking cessation: Yes 'Breaking Loose' booklet given: 07/12/16 - Substance & Tx. History Hx Alcohol Use: Yes Hx Substance Use: Yes Substance Use Type: Alcohol, Heroin Hx Substance Use Treatment: Yes ([facility] 05/23/16 TO 05/28/16) - Substances Abused Heroin Route: Injection Frequency: Daily Amount used: 15 BAGS Age of first use: 24 Date of Last Use: 07/10/16 Alcohol Route: Oral Frequency: Daily Amount used: 2 6PKS BEER/ 2 PINTS WHISKEY Age of first use: 18 Date of Last Use: 07/10/16 Family Disease History - Family Disease History Family Disease History: CA: Mother (breast CA; alcohol depenent ), Other: Father , Mother Admission Physical Exam BHS - Vital Signs Vital Signs: Vital Signs - 24 hr 07/11/16 12:01 Temperature 97.7 F Pulse Rate 96 H Respiratory 20 Rate Blood Pressure 138/90 - Physical General Appearance: Yes: Moderate Distress, Tremorous, Irritable, Sweating, Anxious HEENTM: Yes: Normal ENT Inspection, [place], Pharynx Normal Respiratory: Yes: Within Normal Limits, Lungs Clear, Normal Breath Sounds Neck: Yes: Within Normal Limits, Supple, Trachea in good position Breast: Yes: Within Normal Limits Cardiology: Yes: Within Normal Limits, Regular Rhythm, Regular Rate, S1, S2 Abdominal: Yes: Within Normal Limits, Normal Bowel Sounds, Non Tender, Flat, Soft Genitourinary: Yes: Within Normal Limits Back: Yes: Within Normal Limits, Normal Inspection, Muscle Spasm Musculoskeletal: Yes: Within Normal Limits, Back pain, Muscle Pain Extremities: Yes: Within Normal Limits, Normal Range of Motion, Tremors 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 NML intact, Fully Oriented, Alert, Motor Strength 5/5 Integumentary: Yes: Dry Lymphatic: Yes: Within Normal Limits - Diagnostic (1) Alcohol dependence with uncomplicated withdrawal Current Visit: Yes Status: Acute (2) Nicotine dependence Current Visit: Yes Status: Acute Qualifiers: Nicotine product type: cigarettes Substance use status: in withdrawal Qualified Code(s): F17.213 - Nicotine dependence, cigarettes, with withdrawal (3) Opioid dependence with withdrawal Current Visit: Yes Status: Acute (4) Depression Current Visit: Yes Status: Acute (5) Weight loss Current Visit: Yes Status: Acute Cleared for Admission [facility] - Detox or Rehab [facility] Level of Care: Medically Managed Detox Regimen/Protocol: Methadone/Librium [facility] Breath Alcohol Content Breath Alcohol Content: 0 Urine Drug Screen - Results Drug Screen Negative: No Urine Drug Screen Results: OPI-Opiates
[2016-07-11] MEDS ORDERED: NICOTINE POLACRILEX 2 MG GUM BUC PRN (13:35)
[2016-07-11] MEDS ORDERED: P-EPHED 60MG/TRIPROLIDI 2.5MG TABLET PO PRN (13:35)
[2016-07-11] MEDS ORDERED: MAG HYDROX/AL HYDROX/SIMETH 30 ML UNIT-DOSE CUP PO PRN (13:35)
[2016-07-11] MEDS ORDERED: MENTHOL/PHENOL 1 EACH UD MM PRN (13:35)
[2016-07-11] MEDS ORDERED: IBUPROFEN 400 MG TABLET (FP) PO PRN (13:35)
[2016-07-11] MEDS ORDERED: guaiFENesin/D-METHORPHAN HB 10 ML UNIT-DOSE CUPS PO PRN (13:35)
[2016-07-11] MEDS ORDERED: diphenhydrAMINE HCL 50 MG CAPSULE PO PRN (13:35)
[2016-07-11] MEDS ORDERED: MAGNESIUM CITRATE 300 ML BOTTLE PO PRN (13:35)
[2016-07-11] MEDS ORDERED: MAGNESIUM HYDROX 2400MG/30ML ORAL SUSPENSION 30 ML CUP PO PRN (13:35)
[2016-07-11] MEDS ORDERED: chlordiazePOXIDE HCL 25 MG CAPSULE PO ONE (13:58)
[2016-07-11] MEDS ORDERED: METHADONE HCL 10 MG TABLET (FOR DETOX USE ONLY) PO ONE ×2 (13:59→23:00)
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
[2016-07-11] MEDS: chlordiazePOXIDE HCL 25 MG CAPSULE PO SCH ×2 (18:10→22:20)
[2016-07-11] MEDS: hydrOXYzine PAMOATE 50 MG CAPSULE (FP) PO PRN (18:10)
[2016-07-11] MEDS: chlordiazePOXIDE HCL 25 MG CAPSULE PO PRN (19:46)
[2016-07-11] MEDS: ZOLPIDEM TARTRATE 10 MG TABLET (PARK CARE ONLY) PO PRN (22:20)
[2016-07-11] MEDS: THIAMINE HCL 100 MG TABLET (FP) PO SCH (22:20)
[2016-07-11] MEDS ORDERED: CYCLOBENZAPRINE HCL 10 MG TABLET (FP) PO ONE (22:31)
[2016-07-11 23:15] LABS: URINE APPEARANCE CLEAR; URINE BILIRUBIN NEGATIVE (NEGATIVE); URINE BLOOD NEGATIVE (NEGATIVE); URINE COLOR YELLOW; URINE GLUCOSE (UA) NEGATIVE (NEGATIVE); URINE KETONE NEGATIVE (NEGATIVE); URINE LEUK ESTERASE NEGATIVE (NEGATIVE); URINE NITRITE NEGATIVE (NEGATIVE); URINE PROTEIN NEGATIVE (NEGATIVE); URINE UROBILINOGEN NEGATIVE E.U./dl (0.2-1.0)
[2016-07-12] MEDS: chlordiazePOXIDE HCL 25 MG CAPSULE PO SCH ×4 (05:47→22:15)
[2016-07-12] MEDS ORDERED: METHADONE HCL 10 MG TABLET (FOR DETOX USE ONLY) PO SCH (10:00)
[2016-07-12 10:28] LABS: MCH 30.6 pg (25.7-33.7); MCHC 33.4 g/dl (32.0-35.9); MEAN CELL VOLUME 91.6 fl (80-96); MEAN PLT VOLUME 10.4 fl (7.5-11.1); PLATELET COUNT 176 K/MM3 (134-434); RDW 13.6 % (11.9-15.9); WHITE BLOOD COUNT 7.4 K/mm3 (4.0-10.0)
--- NOTE | 2016-07-12 10:41 | EKG ---
Test Reason : Blood Pressure : / mmHG Vent. Rate : 085 BPM Atrial Rate : 085 BPM P-R Int : 132 ms QRS Dur : 088 ms QT Int : 374 ms P-R-T Axes : 066 040 045 degrees QTc Int : 445 ms SINUS RHYTHM WITH MARKED SINUS ARRHYTHMIA OTHERWISE NORMAL ECG WHEN COMPARED WITH ECG OF 23-MAY-2016 12:32, NO SIGNIFICANT CHANGE WAS FOUND Confirmed by YARA LADD MD ([id number]) on 07/12/2016 10:41:03 AM Referred By: Confirmed By:YARA LADD MD
[2016-07-12] MEDS: hydrOXYzine PAMOATE 50 MG CAPSULE (FP) PO PRN (10:51)
[2016-07-12] MEDS: PRENATAL VITAMINS W/ FOLIC ACID TABLET (FP) PO SCH (10:51)
[2016-07-12 10:52] LABS: ALBUMIN 4.3 g/dl (3.4-5.0); ALK PHOS 114 U/L (45-117); ANION GAP 12 (8-16); BILIRUBIN,TOTAL 1.1 mg/dL (0.2-1.0); CALCIUM 9.4 mg/dL (8.5-10.1); CO2 28 mmol/L (21-32); COCKROFT - GAULT 116.54; CREATININE 0.9 mg/dL (0.7-1.3); GLUCOSE,RANDOM 105 mg/dL (74-106); SGOT/AST 126 U/L (15-37); SGPT/ALT 133 U/L (12-78); TOT PROT 8.2 g/dl (6.4-8.2)
--- NOTE | 2016-07-12 10:58 | PN ---
S CIWA - CIWA Score Nausea/Vomitin Muscle Tremors: 3 Anxiety: 3 Agitation: 3 Paroxysmal Sweats: 1-Minimal Palms Moist Orientation: 0-Oriented Tacttile Disturbances: 1-Very Mild Itch/Numbness Auditory Disturbances: 1-Very Mild Visual Disturbances: 1-Very Mild Sensitivity Headache: 2-Mild CIWA-Ar Total Score: 18 BHS COWS - Scale Resting Pulse: 0= RI 80 or Below Sweatin= Chills/Flushing Restless Observation: 3= Extraneous Movement Pupil Size: 1= Pupils >than Normal Bone or Joint Aches: 2= Severe Diffuse Aches Runny Nose/ Eye Tearin= Runny Nose/Eyes GI Upset > 30mins: 3= Vomiting/Diarrhea Tremor Observation of Outstretched Hands: 2= Slight Tremor Visible Yawning Observation: 1= 1-2x During Session Anxiety or Irritability: 2=Irritable/Anxious Goose Flesh Skin: 0=Smooth Skin COWS Score: 17 S Progress Note (SOAP) Subjective: ALERT,IRRITABLE,ANXIOUS,INTERRUPTED SLEEP,PAIN IN THE BODY AND BACK Objective: 07/12/16 11:01 Vital Signs Temperature 98.1 F 07/12/16 10:26 Pulse Rate 102 H 07/12/16 10:26 Respiratory Rate 18 07/12/16 10:26 Blood Pressure 125/90 07/12/16 10:26 O2 Sat by Pulse Oximetry (%) 07/12/16 11:01 EKG NSR WITH MARKED SINUS ARRHYTHMIA NO CHEST PAIN,NO SOB,NO DIZZINESS Laboratory Last Values WBC 7.4 K/mm3 (4.0-10.0) 07/12/16 06:00 RBC 4.64 M/mm3 (4.00-5.60) 07/12/16 06:00 Hgb 14.2 GM/dL (11.7-16.9) D 07/12/16 06:00 Hct 42.5 % (35.4-49) 07/12/16 06:00 MCV 91.6 fl (80-96) 07/12/16 06:00 MCHC 33.4 g/dl (32.0-35.9) 07/12/16 06:00 RDW 13.6 % (11.9-15.9) 07/12/16 06:00 Plt Count 176 K/MM3 (134-434) 07/12/16 06:00 MPV 10.4 fl (7.5-11.1) 07/12/16 06:00 Sodium 140 mmol/L (136-145) 07/12/16 06:00 Potassium 4.4 mmol/L (3.5-5.1) 07/12/16 06:00 Chloride 100 mmol/L (98-107) 07/12/16 06:00 Carbon Dioxide 28 mmol/L (21-32) 07/12/16 06:00 Anion Gap 12 (8-16) 07/12/16 06:00 BUN 18 mg/dL (7-18) D 07/12/16 06:00 Creatinine 0.9 mg/dL (0.7-1.3) 07/12/16 06:00 Creat Clearance w eGFR > 60 (>60) 07/12/16 06:00 Random Glucose 105 mg/dL (74-106) D 07/12/16 06:00 Calcium 9.4 mg/dL (8.5-10.1) 07/12/16 06:00 Total Bilirubin 1.1 mg/dL (0.2-1.0) H 07/12/16 06:00 AST 126 U/L (15-37) H D 07/12/16 06:00 ALT 133 U/L (12-78) H D 07/12/16 06:00 Alkaline Phosphatase 114 U/L (45-117) 07/12/16 06:00 Total Protein 8.2 g/dl (6.4-8.2) 07/12/16 06:00 Albumin 4.3 g/dl (3.4-5.0) 07/12/16 06:00 Urine Color Yellow 07/11/16 23:00 Urine Appearance Clear 07/11/16 23:00 Urine pH 6.0 (5.0-8.0) 07/11/16 23:00 Ur Specific [place] 1.020 (1.005-1.025) 07/11/16 23:00 Urine Protein Negative (NEGATIVE) 07/11/16 23:00 Urine Glucose (UA) Negative (NEGATIVE) 07/11/16 23:00 Urine Ketones Negative (NEGATIVE) 07/11/16 23:00 Urine Blood Negative (NEGATIVE) 07/11/16 23:00 Urine Nitrite Negative (NEGATIVE) 07/11/16 23:00 Urine Bilirubin Negative (NEGATIVE) 07/11/16 23:00 Urine Urobilinogen Negative E.U./dl (0.2-1.0) 07/11/16 23:00 Ur Leukocyte Esterase Negative (NEGATIVE) 07/11/16 23:00 LABS PENDING Assessment: 07/12/16 11:03 WITHDRAWAL SYMPTOM Plan: CONTINUE DETOX.D/C TYLENOL,REPEAT ALT,AST,INR IN AM
[2016-07-12] MEDS: chlordiazePOXIDE HCL 25 MG CAPSULE PO PRN (12:08)
[2016-07-12] MEDS: CYCLOBENZAPRINE HCL 10 MG TABLET (FP) PO PRN ×2 (12:09→22:15)
[2016-07-12] MEDS: THIAMINE HCL 100 MG TABLET (FP) PO SCH (22:15)
[2016-07-12] MEDS: ZOLPIDEM TARTRATE 10 MG TABLET (PARK CARE ONLY) PO PRN (22:15)
[2016-07-13] MEDS: chlordiazePOXIDE HCL 25 MG CAPSULE PO SCH ×2 (05:15→10:20)
[2016-07-13] MEDS: CYCLOBENZAPRINE HCL 10 MG TABLET (FP) PO PRN ×2 (05:18→14:41)
[2016-07-13 10:14] LABS: INR 0.96 (0.82-1.09); PROTHROMBIN TIME (PATIENT) 10.6 SEC (9.98-11.88)
[2016-07-13] MEDS: METHADONE HCL 5 MG TABLET (FOR DETOX USE ONLY) PO SCH (10:19)
[2016-07-13] MEDS: PRENATAL VITAMINS W/ FOLIC ACID TABLET (FP) PO SCH (10:19)
[2016-07-13 10:49] LABS: SGPT/ALT 133 U/L (12-78)
[2016-07-13 10:56] LABS: SGOT/AST 127 U/L (15-37)
--- NOTE | 2016-07-13 12:44 | PN ---
S CIWA - CIWA Score Nausea/Vomitin Muscle Tremors: 3 Anxiety: 2 Agitation: 2 Paroxysmal Sweats: 1-Minimal Palms Moist Orientation: 0-Oriented Tacttile Disturbances: 1-Very Mild Itch/Numbness Auditory Disturbances: 1-Very Mild Visual Disturbances: 1-Very Mild Sensitivity Headache: 2-Mild CIWA-Ar Total Score: 16 BHS COWS - Scale Resting Pulse: 2= TN 101-120 Sweatin= Chills/Flushing Restless Observation: 3= Extraneous Movement Pupil Size: 1= Pupils >than Normal Bone or Joint Aches: 2= Severe Diffuse Aches Runny Nose/ Eye Tearin= Runny Nose/Eyes GI Upset > 30mins: 2= Nausea/Diarrhea Tremor Observation of Outstretched Hands: 2= Slight Tremor Visible Yawning Observation: 1= 1-2x During Session Anxiety or Irritability: 2=Irritable/Anxious Goose Flesh Skin: 0=Smooth Skin COWS Score: 18 S Progress Note (SOAP) Subjective: ALERT,IRRITABLE,ANXIOUS,INTERRUPTED SLEEP,TREMOR,PAIN IN THE BODY AND BACK Objective: 07/13/16 12:43 Vital Signs Temperature 97.5 F L 07/13/16 10:00 Pulse Rate 107 H 07/13/16 10:00 Respiratory Rate 20 07/13/16 10:00 Blood Pressure 133/80 07/13/16 10:00 O2 Sat by Pulse Oximetry (%) Laboratory Last Values WBC 7.4 K/mm3 (4.0-10.0) 07/12/16 06:00 RBC 4.64 M/mm3 (4.00-5.60) 07/12/16 06:00 Hgb 14.2 GM/dL (11.7-16.9) D 07/12/16 06:00 Hct 42.5 % (35.4-49) 07/12/16 06:00 MCV 91.6 fl (80-96) 07/12/16 06:00 MCHC 33.4 g/dl (32.0-35.9) 07/12/16 06:00 RDW 13.6 % (11.9-15.9) 07/12/16 06:00 Plt Count 176 K/MM3 (134-434) 07/12/16 06:00 MPV 10.4 fl (7.5-11.1) 07/12/16 06:00 INR 0.96 (0.82-1.09) 07/13/16 07:50 Sodium 140 mmol/L (136-145) 07/12/16 06:00 Potassium 4.4 mmol/L (3.5-5.1) 07/12/16 06:00 Chloride 100 mmol/L (98-107) 07/12/16 06:00 Carbon Dioxide 28 mmol/L (21-32) 07/12/16 06:00 Anion Gap 12 (8-16) 07/12/16 06:00 BUN 18 mg/dL (7-18) D 07/12/16 06:00 Creatinine 0.9 mg/dL (0.7-1.3) 07/12/16 06:00 Creat Clearance w eGFR > 60 (>60) 07/12/16 06:00 Random Glucose 105 mg/dL (74-106) D 07/12/16 06:00 Calcium 9.4 mg/dL (8.5-10.1) 07/12/16 06:00 Total Bilirubin 1.1 mg/dL (0.2-1.0) H 07/12/16 06:00 AST 127 U/L (15-37) H 07/13/16 07:50 ALT 133 U/L (12-78) H 07/13/16 07:50 Alkaline Phosphatase 114 U/L (45-117) 07/12/16 06:00 Total Protein 8.2 g/dl (6.4-8.2) 07/12/16 06:00 Albumin 4.3 g/dl (3.4-5.0) 07/12/16 06:00 Urine Color Yellow 07/11/16 23:00 Urine Appearance Clear 07/11/16 23:00 Urine pH 6.0 (5.0-8.0) 07/11/16 23:00 Ur Specific [place] 1.020 (1.005-1.025) 07/11/16 23:00 Urine Protein Negative (NEGATIVE) 07/11/16 23:00 Urine Glucose (UA) Negative (NEGATIVE) 07/11/16 23:00 Urine Ketones Negative (NEGATIVE) 07/11/16 23:00 Urine Blood Negative (NEGATIVE) 07/11/16 23:00 Urine Nitrite Negative (NEGATIVE) 07/11/16 23:00 Urine Bilirubin Negative (NEGATIVE) 07/11/16 23:00 Urine Urobilinogen Negative E.U./dl (0.2-1.0) 07/11/16 23:00 Ur Leukocyte Esterase Negative (NEGATIVE) 07/11/16 23:00 RPR Titer Nonreactive (NONREACTIVE) 07/12/16 06:00 Assessment: 07/13/16 12:44 WITHDRAWAL SYMPTOM Plan: CONTINUE DETOX
[2016-07-13] MEDS ORDERED: LIDOCAINE VISCOUS 2% ORAL/TOP 100 ML BOTTLE MM PRN (14:26)
[2016-07-13] MEDS: chlordiazePOXIDE HCL 25 MG CAPSULE PO PRN (14:41)
[2016-07-13] MEDS: chlordiazePOXIDE 5 MG CAPSULE PO SCH ×2 (17:25→22:04)
[2016-07-13] MEDS: ZOLPIDEM TARTRATE 10 MG TABLET (PARK CARE ONLY) PO PRN (22:04)
[2016-07-13] MEDS: THIAMINE HCL 100 MG TABLET (FP) PO SCH (22:04)
[2016-07-14] MEDS: chlordiazePOXIDE 5 MG CAPSULE PO SCH ×2 (05:27→10:06)
[2016-07-14] MEDS: CYCLOBENZAPRINE HCL 10 MG TABLET (FP) PO PRN ×2 (05:30→22:03)
[2016-07-14] MEDS: ACETAMINOPHEN 325 MG TABLET (FP) PO PRN (06:35)
[2016-07-14] MEDS: PRENATAL VITAMINS W/ FOLIC ACID TABLET (FP) PO SCH (10:06)
[2016-07-14] MEDS: METHADONE HCL 5 MG TABLET (FOR DETOX USE ONLY) PO SCH (10:06)
--- NOTE | 2016-07-14 11:45 | PN ---
BHS Progress Note (SOAP) Subjective: ALERT,IRRITABLE,ANXIOUS,INTERRUPTED SLEEP,PAIN IN THE BODY Objective: 07/14/16 11:44 Vital Signs Temperature 97.7 F 07/14/16 09:41 Pulse Rate 98 H 07/14/16 09:41 Respiratory Rate 18 07/14/16 09:41 Blood Pressure 108/73 07/14/16 09:41 O2 Sat by Pulse Oximetry (%) Assessment: 07/14/16 11:44 WITHDRAWAL SYMPTOM Plan: CONTINUE DETOX
[2016-07-14] MEDS: chlordiazePOXIDE HCL 10 MG CAPSULE PO SCH ×2 (17:20→22:03)
[2016-07-14] MEDS: THIAMINE HCL 100 MG TABLET (FP) PO SCH (22:03)
[2016-07-14] MEDS: ZOLPIDEM TARTRATE 10 MG TABLET (PARK CARE ONLY) PO PRN (22:03)
[2016-07-15] MEDS: chlordiazePOXIDE HCL 10 MG CAPSULE PO SCH ×2 (05:14→10:08)
[2016-07-15] MEDS: CYCLOBENZAPRINE HCL 10 MG TABLET (FP) PO PRN ×2 (05:16→22:04)
--- NOTE | 2016-07-15 09:48 | PN ---
BHS Progress Note (SOAP) Subjective: anxiety sweats irritable Objective: 07/15/16 09:47 Vital Signs Temperature 97.5 F L 07/15/16 06:00 Pulse Rate 69 07/15/16 06:00 Respiratory Rate 18 07/15/16 06:00 Blood Pressure 117/74 07/15/16 06:00 O2 Sat by Pulse Oximetry (%) awake/alert ambulating no acute distress Assessment: 07/15/16 09:47 withdrawal sx Plan: continue detox increase fluids visitril prn d/c in am
[2016-07-15] MEDS: hydrOXYzine PAMOATE 50 MG CAPSULE (FP) PO PRN ×4 (10:00→18:24)
[2016-07-15] MEDS ORDERED: METHADONE HCL 10 MG TABLET (FOR DETOX USE ONLY) PO SCH (10:00)
[2016-07-15] MEDS: PRENATAL VITAMINS W/ FOLIC ACID TABLET (FP) PO SCH (10:08)
[2016-07-15] MEDS ORDERED: cloNIDine HCL 0.1 MG TABLET PO ONE (10:15)
[2016-07-15] MEDS: LOPERAMIDE HCL 2 MG CAPSULE PO PRN ×2 (15:48→22:05)
[2016-07-15] MEDS: THIAMINE HCL 100 MG TABLET (FP) PO SCH (22:04)
[2016-07-15] MEDS: ZOLPIDEM TARTRATE 10 MG TABLET (PARK CARE ONLY) PO PRN (22:04)
[2016-07-16] MEDS: LOPERAMIDE HCL 2 MG CAPSULE PO PRN (04:11)
[2016-07-16] MEDS: CYCLOBENZAPRINE HCL 10 MG TABLET (FP) PO PRN (05:41)
[2016-07-16] MEDS ORDERED: METHADONE HCL 5 MG TABLET (FOR DETOX USE ONLY) PO SCH (06:00)
[2016-07-16 06:26] VITALS: BP 100/61; PULSE 93; TEMP 97.9
[2016-07-16] MEDS: hydrOXYzine PAMOATE 50 MG CAPSULE (FP) PO PRN (07:16)
[2016-07-16] MEDS: ACETAMINOPHEN 325 MG TABLET (FP) PO PRN (07:16)
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
[2016-07-16] MEDS ORDERED: ONDANSETRON *ODT* 4 MG TABLET SL ONE (08:26)
[2016-07-16] MEDS: PRENATAL VITAMINS W/ FOLIC ACID TABLET (FP) PO SCH (09:10)
== END 2016-07-16 09:30 | disposition home or self-care (01) | DRG 773 ==
LOC: YASAS 09:35 → Y6N 13:56
PROVIDERS: ADMIT Internal Medicine; ATTEND Internal Medicine
PROC: HZ2ZZZZ Detoxification Services for Substance Abuse Treatment (ICD-10-PCS; principal; 2016-07-11)
DX: F11.23 Opioid dependence with withdrawal (principal); F10.230 Alcohol dependence with withdrawal, uncomplicated; F17.210 Nicotine dependence, cigarettes, uncomplicated; F32.9 Major depressive disorder, single episode, unspecified; F43.10 Post-traumatic stress disorder, unspecified; R21 Rash and other nonspecific skin eruption; I49.9 Cardiac arrhythmia, unspecified; G47.00 Insomnia, unspecified; Z87.898 Personal history of other specified conditions
CPT/HCPCS: 36415; 80053; 81003; 84450; 84460; 85027; 85610; 86593; 93005; 93010

== ENCOUNTER 2017-04-18 12:27 | Inpatient (IN) | payer OTHER ==
[2017-04-18 14:13] VITALS: BMI 22.4
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
[2017-04-18] MEDS ORDERED: guaiFENesin/D-METHORPHAN HB 10 ML UNIT-DOSE CUPS PO PRN (17:39)
[2017-04-18] MEDS ORDERED: MAGNESIUM HYDROX 2400MG/30ML ORAL SUSPENSION 30 ML CUP PO PRN (17:39)
[2017-04-18] MEDS ORDERED: chlordiazePOXIDE HCL 25 MG CAPSULE PO PRN (17:39)
[2017-04-18] MEDS ORDERED: NICOTINE POLACRILEX 2 MG GUM BC PRN (17:39)
[2017-04-18] MEDS ORDERED: MAG HYDROX/AL HYDROX/SIMETH 30 ML UNIT-DOSE CUP PO PRN (17:39)
[2017-04-18] MEDS ORDERED: LOPERAMIDE HCL 2 MG CAPSULE PO PRN (17:39)
[2017-04-18] MEDS ORDERED: P-EPHED 60MG/TRIPROLIDI 2.5MG TABLET PO PRN (17:39)
[2017-04-18] MEDS ORDERED: MAGNESIUM CITRATE 300 ML BOTTLE PO PRN (17:39)
[2017-04-18] MEDS ORDERED: IBUPROFEN 400 MG TABLET (FP) PO PRN (17:39)
[2017-04-18] MEDS ORDERED: MENTHOL/PHENOL 1 EACH UD MM PRN (17:39)
[2017-04-18] MEDS ORDERED: chlordiazePOXIDE HCL 25 MG CAPSULE PO ONE (18:15)
[2017-04-18] MEDS ORDERED: TRIMETHOBENZAMIDE HCL 200MG/2ML INJ IM ONE (18:45)
[2017-04-18] MEDS ORDERED: METHADONE HCL 10 MG TABLET (FOR DETOX USE ONLY) PO ONE ×2 (18:45→23:00)
[2017-04-18] MEDS: ACETAMINOPHEN 325 MG TABLET (FP) PO PRN (19:53)
[2017-04-18] MEDS: chlordiazePOXIDE HCL 25 MG CAPSULE PO SCH (22:42)
[2017-04-18] MEDS: THIAMINE HCL 100 MG TABLET (FP) PO SCH (22:42)
[2017-04-18] MEDS: hydrOXYzine PAMOATE 50 MG CAPSULE (FP) PO PRN (22:51)
[2017-04-19] MEDS: chlordiazePOXIDE HCL 25 MG CAPSULE PO SCH ×4 (05:17→22:26)
[2017-04-19] MEDS: hydrOXYzine PAMOATE 50 MG CAPSULE (FP) PO PRN ×3 (05:19→22:27)
[2017-04-19] MEDS ORDERED: METHADONE HCL 10 MG TABLET (FOR DETOX USE ONLY) PO SCH (10:00)
[2017-04-19 10:01] LABS: HEMATOCRIT 43.7 % (35.4-49); HEMOGLOBIN 14.4 GM/dL (11.7-16.9); MCH 30.1 pg (25.7-33.7); MEAN CELL VOLUME 91.2 fl (80-96); MEAN PLT VOLUME 9.7 fl (7.5-11.1); PLATELET COUNT 195 K/MM3 (134-434); RDW 14.1 % (11.9-15.9); WHITE BLOOD COUNT 6.4 K/mm3 (4.0-10.0)
[2017-04-19 10:06] LABS: CHLORIDE 105 mmol/L (98-107); POTASSIUM 3.9 mmol/L (3.5-5.1); SODIUM 139 mmol/L (136-145)
[2017-04-19 10:06] LABS: URINE APPEARANCE TURBID; URINE BILIRUBIN NEGATIVE (NEGATIVE); URINE BLOOD NEGATIVE (NEGATIVE); URINE COLOR YELLOW; URINE GLUCOSE (UA) NEGATIVE (NEGATIVE); URINE KETONE NEGATIVE (NEGATIVE); URINE LEUK ESTERASE NEGATIVE (NEGATIVE); URINE NITRITE NEGATIVE (NEGATIVE); URINE PROTEIN NEGATIVE (NEGATIVE); URINE UROBILINOGEN NEGATIVE mg/dL (0.2-1.0)
[2017-04-19 10:15] LABS: ALBUMIN 3.4 g/dl (3.4-5.0); ALK PHOS 89 U/L (45-117); ANION GAP 6 (8-16); BILIRUBIN,TOTAL 1.5 mg/dL (0.2-1.0); BLOOD UREA NITROGEN 13 mg/dL (7-18); CALCIUM 8.5 mg/dL (8.5-10.1); CO2 28 mmol/L (21-32); CREATININE 0.7 mg/dL (0.7-1.3); GLUCOSE,RANDOM 86 mg/dL (74-106); SGOT/AST 70 U/L (15-37); SGPT/ALT 80 U/L (12-78); TOT PROT 7.3 g/dl (6.4-8.2)
[2017-04-19] MEDS: NICOTINE 14 MG/24 HOURS TOPICAL PATCH TD SCH (10:20)
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
[2017-04-19] MEDS: PRENATAL VITAMINS W/ FOLIC ACID TABLET (FP) PO SCH (12:25)
[2017-04-19] MEDS ORDERED: TRIMETHOBENZAMIDE HCL 200MG/2ML INJ IM PRN (12:26)
[2017-04-19] MEDS ORDERED: cloNIDine HCL 0.1 MG TABLET PO ONE ×2 (12:30→17:45)
--- NOTE | 2017-04-19 17:43 | PN ---
[facility] CIWA - CIWA Score Nausea/Vomitin Muscle Tremors: None Anxiety: 4-Mod. Anxious/Guarded Agitation: 2 Paroxysmal Sweats: 3 Orientation: 0-Oriented Tacttile Disturbances: 2-Mild Itch/Numbness/Burn Auditory Disturbances: 0-None Visual Disturbances: 2-Mild Sensitivity Headache: 0-None Present CIWA-Ar Total Score: 18 S COWS - Scale Resting Pulse: 1= [place] 81-100 Sweatin= Chills/Flushing Restless Observation: 1= Difficult to Sit Still Pupil Size: 0= Normal to Room Light Bone or Joint Aches: 2= Severe Diffuse Aches Runny Nose/ Eye Tearin= None GI Upset > 30mins: 3= Vomiting/Diarrhea Tremor Observation of Outstretched Hands: 0= None Yawning Observation: 1= 1-2x During Session Anxiety or Irritability: 2=Irritable/Anxious Goose Flesh Skin: 3=Piloerection COWS Score: 14 [facility] Progress Note (SOAP) Subjective: Anxious, Diarrhea, Vomiting, Sweating, Objective: PT. A & O X 3, OBSERVED AMBULATING ON UNIT. NO ACUTE DISTRESS. 04/19/17 17:40 Vital Signs Temperature 97.8 F 04/19/17 14:20 Pulse Rate 91 H 04/19/17 14:20 Respiratory Rate 20 04/19/17 14:20 Blood Pressure 120/82 04/19/17 14:20 O2 Sat by Pulse Oximetry (%) Laboratory Tests 04/18/17 04/19/17 04/19/17 09:45 07:40 07:40 WBC 6.4 RBC 4.80 Hgb 14.4 Hct 43.7 MCV 91.2 MCH 30.1 MCHC 33.0 RDW 14.1 Plt Count 195 MPV 9.7 Sodium 139 Potassium 3.9 Chloride 105 Carbon Dioxide 28 Anion Gap 6 L BUN 13 D Creatinine 0.7 D Creat Clearance w eGFR > 60 Random Glucose 86 Calcium 8.5 Total Bilirubin 1.5 H D AST 70 H D ALT 80 H D Alkaline Phosphatase 89 D Total Protein 7.3 Albumin 3.4 D Urine Color Yellow Urine Appearance Turbid Urine pH 5.0 Ur Specific [place] 1.023 Urine Protein Negative Urine Glucose (UA) Negative Urine Ketones Negative Urine Blood Negative Urine Nitrite Negative Urine Bilirubin Negative Urine Urobilinogen Negative Ur Leukocyte Esterase Negative RPR Titer 04/19/17 07:40 WBC RBC Hgb Hct MCV MCH MCHC RDW Plt Count MPV Sodium Potassium Chloride Carbon Dioxide Anion Gap BUN Creatinine Creat Clearance w eGFR Random Glucose Calcium Total Bilirubin AST ALT Alkaline Phosphatase Total Protein Albumin Urine Color Urine Appearance Urine pH Ur Specific [place] Urine Protein Urine Glucose (UA) Urine Ketones Urine Blood Urine Nitrite Urine Bilirubin Urine Urobilinogen Ur Leukocyte Esterase RPR Titer Nonreactive labs noted. Assessment: 04/19/17 17:40 WITHDRAWAL SYMPTOMS. Plan: CONTINUE DETOX. CLONIDINE, 0.1 MG PO FOR SEVERE DETOX SYMPTOMS. TIGAN IM PRN FOR NAUSEA / VOMITING. FLEXERIL PO PRN FOR BODY ACHES /MUSCLE SPASMS. INCREASE DAILY PO FLUID INTAKE.
[2017-04-19] MEDS: THIAMINE HCL 100 MG TABLET (FP) PO SCH (22:26)
[2017-04-19] MEDS: ZOLPIDEM TARTRATE 10 MG TABLET (PARK CARE ONLY) PO PRN (22:26)
[2017-04-19] MEDS: QUEtiapine FUMARATE 50 MG TABLET PO SCH (22:26)
[2017-04-19] MEDS: CYCLOBENZAPRINE HCL 5 MG TABLET PO PRN (22:59)
[2017-04-20] MEDS: chlordiazePOXIDE HCL 25 MG CAPSULE PO SCH ×3 (05:10→18:31)
[2017-04-20] MEDS: NICOTINE 14 MG/24 HOURS TOPICAL PATCH TD SCH (10:18)
[2017-04-20] MEDS: METHADONE HCL 5 MG TABLET (FOR DETOX USE ONLY) PO SCH (10:18)
[2017-04-20] MEDS: CYCLOBENZAPRINE HCL 5 MG TABLET PO PRN (10:19)
[2017-04-20] MEDS: PRENATAL VITAMINS W/ FOLIC ACID TABLET (FP) PO SCH (10:19)
--- NOTE | 2017-04-20 19:47 | PN ---
S CIWA - CIWA Score Nausea/Vomitin Muscle Tremors: 4-Moderate,w/Arms Extend Anxiety: 3 Agitation: 3 Paroxysmal Sweats: 3 Orientation: 0-Oriented Tacttile Disturbances: 0-None Auditory Disturbances: 0-None Visual Disturbances: 0-None Headache: 0-None Present CIWA-Ar Total Score: 16 [facility] COWS - Scale Resting Pulse: 0= [place] 80 or Below Sweatin=Flushed/Facial Moisture Restless Observation: 1= Difficult to Sit Still Pupil Size: 0= Normal to Room Light Bone or Joint Aches: 2= Severe Diffuse Aches Runny Nose/ Eye Tearin= Nasal Congestion GI Upset > 30mins: 1= Stomach Cramp Tremor Observation of Outstretched Hands: 2= Slight Tremor Visible Yawning Observation: 1= 1-2x During Session Anxiety or Irritability: 2=Irritable/Anxious Goose Flesh Skin: 0=Smooth Skin COWS Score: 12 S Progress Note (SOAP) Subjective: generalized aches sweats shakes Objective: 04/20/17 19:46 A &O x 3 Vital Signs Temperature 97.9 F 04/20/17 17:32 Pulse Rate 76 04/20/17 17:32 Respiratory Rate 18 04/20/17 17:32 Blood Pressure 105/60 04/20/17 17:32 O2 Sat by Pulse Oximetry (%) Assessment: 04/20/17 19:46 withdrawal sx Plan: continue detox increase hydration
[2017-04-20] MEDS: hydrOXYzine PAMOATE 50 MG CAPSULE (FP) PO PRN (22:17)
[2017-04-20] MEDS: chlordiazePOXIDE 5 MG CAPSULE PO SCH (22:17)
[2017-04-20] MEDS: ZOLPIDEM TARTRATE 10 MG TABLET (PARK CARE ONLY) PO PRN (22:17)
[2017-04-20] MEDS: THIAMINE HCL 100 MG TABLET (FP) PO SCH (22:17)
[2017-04-20] MEDS: QUEtiapine FUMARATE 50 MG TABLET PO SCH (22:17)
[2017-04-21] MEDS: chlordiazePOXIDE 5 MG CAPSULE PO SCH ×3 (05:33→17:41)
[2017-04-21] MEDS: ACETAMINOPHEN 325 MG TABLET (FP) PO PRN (09:42)
[2017-04-21] MEDS: PRENATAL VITAMINS W/ FOLIC ACID TABLET (FP) PO SCH (09:43)
[2017-04-21] MEDS: METHADONE HCL 5 MG TABLET (FOR DETOX USE ONLY) PO SCH (09:43)
[2017-04-21] MEDS: NICOTINE 14 MG/24 HOURS TOPICAL PATCH TD SCH (09:45)
--- NOTE | 2017-04-21 11:08 | PN ---
S Progress Note (SOAP) Subjective: PT SEEN IN BED DURING ROUNDS . NO ACUTE DISTRESS. PT WAS OOB AND ABOUT THE UNIT AFTERWARDS FOR MEDS PER HIS NURSE. Objective: 04/21/17 11:05 Vital Signs Temperature 96.7 F L 04/21/17 10:01 Pulse Rate 81 04/21/17 10:01 Respiratory Rate 18 04/21/17 10:01 Blood Pressure 112/80 04/21/17 10:01 O2 Sat by Pulse Oximetry (%) Laboratory Last Values WBC 6.4 K/mm3 (4.0-10.0) 04/19/17 07:40 RBC 4.80 M/mm3 (4.00-5.60) 04/19/17 07:40 Hgb 14.4 GM/dL (11.7-16.9) 04/19/17 07:40 Hct 43.7 % (35.4-49) 04/19/17 07:40 MCV 91.2 fl (80-96) 04/19/17 07:40 MCH 30.1 pg (25.7-33.7) 04/19/17 07:40 MCHC 33.0 g/dl (32.0-35.9) 04/19/17 07:40 RDW 14.1 % (11.9-15.9) 04/19/17 07:40 Plt Count 195 K/MM3 (134-434) 04/19/17 07:40 MPV 9.7 fl (7.5-11.1) 04/19/17 07:40 Sodium 139 mmol/L (136-145) 04/19/17 07:40 Potassium 3.9 mmol/L (3.5-5.1) 04/19/17 07:40 Chloride 105 mmol/L (98-107) 04/19/17 07:40 Carbon Dioxide 28 mmol/L (21-32) 04/19/17 07:40 Anion Gap 6 (8-16) L 04/19/17 07:40 BUN 13 mg/dL (7-18) D 04/19/17 07:40 Creatinine 0.7 mg/dL (0.7-1.3) D 04/19/17 07:40 Creat Clearance w eGFR > 60 (>60) 04/19/17 07:40 Random Glucose 86 mg/dL (74-106) 04/19/17 07:40 Calcium 8.5 mg/dL (8.5-10.1) 04/19/17 07:40 Total Bilirubin 1.5 mg/dL (0.2-1.0) H D 04/19/17 07:40 AST 70 U/L (15-37) H D 04/19/17 07:40 ALT 80 U/L (12-78) H D 04/19/17 07:40 Alkaline Phosphatase 89 U/L (45-117) D 04/19/17 07:40 Total Protein 7.3 g/dl (6.4-8.2) 04/19/17 07:40 Albumin 3.4 g/dl (3.4-5.0) D 04/19/17 07:40 Urine Color Yellow 04/18/17 09:45 Urine Appearance Turbid 04/18/17 09:45 Urine pH 5.0 (5.0-8.0) 04/18/17 09:45 Ur Specific [place] 1.023 (1.001-1.035) 04/18/17 09:45 Urine Protein Negative (NEGATIVE) 04/18/17 09:45 Urine Glucose (UA) Negative (NEGATIVE) 04/18/17 09:45 Urine Ketones Negative (NEGATIVE) 04/18/17 09:45 Urine Blood Negative (NEGATIVE) 04/18/17 09:45 Urine Nitrite Negative (NEGATIVE) 04/18/17 09:45 Urine Bilirubin Negative (NEGATIVE) 04/18/17 09:45 Urine Urobilinogen Negative mg/dL (0.2-1.0) 04/18/17 09:45 Ur Leukocyte Esterase Negative (NEGATIVE) 04/18/17 09:45 RPR Titer Nonreactive (NONREACTIVE) 04/19/17 07:40 Assessment: 04/21/17 11:05 WITHDRAWAL SX Plan: CONTINUE DETOX
[2017-04-21] MEDS: CYCLOBENZAPRINE HCL 5 MG TABLET PO PRN (15:32)
[2017-04-21] MEDS ORDERED: CYCLOBENZAPRINE HCL 10 MG TABLET (FP) PO ONE (22:17)
[2017-04-21] MEDS: QUEtiapine FUMARATE 50 MG TABLET PO SCH (22:29)
[2017-04-21] MEDS: ZOLPIDEM TARTRATE 10 MG TABLET (PARK CARE ONLY) PO PRN (22:29)
[2017-04-21] MEDS: chlordiazePOXIDE HCL 10 MG CAPSULE PO SCH (22:29)
[2017-04-21] MEDS: THIAMINE HCL 100 MG TABLET (FP) PO SCH (22:59)
[2017-04-21] MEDS ORDERED: CYCLOBENZAPRINE HCL 5 MG TABLET PO ONE (23:15)
[2017-04-22] MEDS: chlordiazePOXIDE HCL 10 MG CAPSULE PO SCH ×3 (05:34→16:54)
[2017-04-22] MEDS: hydrOXYzine PAMOATE 50 MG CAPSULE (FP) PO PRN ×2 (05:35→14:15)
[2017-04-22] MEDS ORDERED: METHADONE HCL 10 MG TABLET (FOR DETOX USE ONLY) PO SCH (10:00)
[2017-04-22] MEDS: NICOTINE 14 MG/24 HOURS TOPICAL PATCH TD SCH (10:10)
[2017-04-22] MEDS: PRENATAL VITAMINS W/ FOLIC ACID TABLET (FP) PO SCH (10:10)
[2017-04-22] MEDS ORDERED: ONDANSETRON *ODT* 4 MG TABLET SL PRN (10:30)
[2017-04-22] MEDS ORDERED: TRIMETHOBENZAMIDE HCL 200MG/2ML INJ IM PRN (10:33)
--- NOTE | 2017-04-22 10:36 | PN ---
[facility] Progress Note (SOAP) Subjective: ANXIETY,NERVOUSNESS,JUMPY, IRRITABILITY, NAUSEA/VOMITING. PT TOLERATING PO THIS MORNING. OPEN TO ZOFRAN S/L INSTEAD OF INJ IF NOT IN ACTIVE N/V MODE. Objective: 04/22/17 10:33 Vital Signs Temperature 96.2 F L 04/22/17 10:03 Pulse Rate 89 04/22/17 10:03 Respiratory Rate 20 04/22/17 10:03 Blood Pressure 106/72 04/22/17 10:03 O2 Sat by Pulse Oximetry (%) Laboratory Last Values WBC 6.4 K/mm3 (4.0-10.0) 04/19/17 07:40 RBC 4.80 M/mm3 (4.00-5.60) 04/19/17 07:40 Hgb 14.4 GM/dL (11.7-16.9) 04/19/17 07:40 Hct 43.7 % (35.4-49) 04/19/17 07:40 MCV 91.2 fl (80-96) 04/19/17 07:40 MCH 30.1 pg (25.7-33.7) 04/19/17 07:40 MCHC 33.0 g/dl (32.0-35.9) 04/19/17 07:40 RDW 14.1 % (11.9-15.9) 04/19/17 07:40 Plt Count 195 K/MM3 (134-434) 04/19/17 07:40 MPV 9.7 fl (7.5-11.1) 04/19/17 07:40 Sodium 139 mmol/L (136-145) 04/19/17 07:40 Potassium 3.9 mmol/L (3.5-5.1) 04/19/17 07:40 Chloride 105 mmol/L (98-107) 04/19/17 07:40 Carbon Dioxide 28 mmol/L (21-32) 04/19/17 07:40 Anion Gap 6 (8-16) L 04/19/17 07:40 BUN 13 mg/dL (7-18) D 04/19/17 07:40 Creatinine 0.7 mg/dL (0.7-1.3) D 04/19/17 07:40 Creat Clearance w eGFR > 60 (>60) 04/19/17 07:40 Random Glucose 86 mg/dL (74-106) 04/19/17 07:40 Calcium 8.5 mg/dL (8.5-10.1) 04/19/17 07:40 Total Bilirubin 1.5 mg/dL (0.2-1.0) H D 04/19/17 07:40 AST 70 U/L (15-37) H D 04/19/17 07:40 ALT 80 U/L (12-78) H D 04/19/17 07:40 Alkaline Phosphatase 89 U/L (45-117) D 04/19/17 07:40 Total Protein 7.3 g/dl (6.4-8.2) 04/19/17 07:40 Albumin 3.4 g/dl (3.4-5.0) D 04/19/17 07:40 Urine Color Yellow 04/18/17 09:45 Urine Appearance Turbid 04/18/17 09:45 Urine pH 5.0 (5.0-8.0) 04/18/17 09:[address] Ur [address] [place] 1.023 (1.001-1.035) 04/18/17 09:45 Urine Protein Negative (NEGATIVE) 04/18/17 09:45 Urine Glucose (UA) Negative (NEGATIVE) 04/18/17 09:45 Urine Ketones Negative (NEGATIVE) 04/18/17 09:45 Urine Blood Negative (NEGATIVE) 04/18/17 09:45 Urine Nitrite Negative (NEGATIVE) 04/18/17 09:45 Urine Bilirubin Negative (NEGATIVE) 04/18/17 09:45 Urine Urobilinogen Negative mg/dL (0.2-1.0) 04/18/17 09:45 Ur Leukocyte Esterase Negative (NEGATIVE) 04/18/17 09:45 RPR Titer Nonreactive (NONREACTIVE) 04/19/17 07:40 Assessment: 04/22/17 10:33 WITHDRAWAL SX Plan: CONTINUE DETOX ADD ZOFRAN S/L PRN.
--- NOTE | 2017-04-22 13:36 | EKG ---
Test Reason : Blood Pressure : / mmHG Vent. Rate : 072 BPM Atrial Rate : 072 BPM P-R Int : 124 ms QRS Dur : 086 ms QT Int : 398 ms P-R-T Axes : 058 037 043 degrees QTc Int : 435 ms NORMAL SINUS RHYTHM NORMAL ECG WHEN COMPARED WITH ECG OF 11-JUL-2016 14:49, NO SIGNIFICANT CHANGE WAS FOUND Confirmed by MD Simon Daniel ([id number]) on 04/22/2017 1:36:06 PM Referred By: Confirmed By:Norbert Simon MD
[2017-04-22] MEDS: CYCLOBENZAPRINE HCL 5 MG TABLET PO PRN (14:18)
[2017-04-22] MEDS: diphenhydrAMINE HCL 50 MG CAPSULE PO PRN (16:54)
[2017-04-22] MEDS: THIAMINE HCL 100 MG TABLET (FP) PO SCH (22:27)
[2017-04-22] MEDS: QUEtiapine FUMARATE 50 MG TABLET PO SCH (22:27)
[2017-04-23] MEDS: CYCLOBENZAPRINE HCL 5 MG TABLET PO PRN (05:45)
[2017-04-23] MEDS ORDERED: METHADONE HCL 5 MG TABLET (FOR DETOX USE ONLY) PO SCH (06:00)
[2017-04-23 06:37] VITALS: BP 110/68; PULSE 65; TEMP 96.4
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
[2017-04-23] MEDS ORDERED: HYDROCORTISONE 1% TOPICAL CREAM 30 GM TUBE TP PRN (09:10)
[2017-04-23] MEDS ORDERED: diphenhydrAMINE HCL 25 MG CAPSULE (FP) PO ONE (09:20)
[2017-04-23] MEDS: NICOTINE 14 MG/24 HOURS TOPICAL PATCH TD SCH (09:21)
[2017-04-23] MEDS: PRENATAL VITAMINS W/ FOLIC ACID TABLET (FP) PO SCH (09:21)
[2017-04-23] MEDS: diphenhydrAMINE HCL 50 MG CAPSULE PO PRN (09:22)
== END 2017-04-23 09:28 | disposition home or self-care (01) | DRG 773 ==
LOC: YASAS 12:27 → Y3N 17:27
PROVIDERS: ADMIT Internal Medicine; ATTEND Internal Medicine
PROC: HZ2ZZZZ Detoxification Services for Substance Abuse Treatment (ICD-10-PCS; principal; 2017-04-18)
DX: F11.23 Opioid dependence with withdrawal (principal); F10.230 Alcohol dependence with withdrawal, uncomplicated; F17.210 Nicotine dependence, cigarettes, uncomplicated; F19.24 Other psychoactive substance dependence with psychoactive substance-induced mood disorder; F41.9 Anxiety disorder, unspecified; F43.10 Post-traumatic stress disorder, unspecified; E86.0 Dehydration; M54.5 Low back pain; R21 Rash and other nonspecific skin eruption; G47.00 Insomnia, unspecified; R11.10 Vomiting, unspecified; Z87.898 Personal history of other specified conditions; Z91.010 Allergy to peanuts
CPT/HCPCS: 36415; 80053; 81003; 85027; 86593; 93005; 93010; J0735

== ENCOUNTER 2018-05-18 13:01 | Inpatient (IN) | payer OTHER ==
[2018-05-18 19:03] VITALS: BMI 23.4
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
[2018-05-18] MEDS ORDERED: NICOTINE POLACRILEX 2 MG GUM BUC PRN (20:48)
[2018-05-18] MEDS ORDERED: MAG HYDROX/AL HYDROX/SIMETH 30 ML UNIT-DOSE CUP PO PRN (20:48)
[2018-05-18] MEDS ORDERED: ACETAMINOPHEN 325 MG TABLET (FP) PO PRN ×2 (20:48)
[2018-05-18] MEDS ORDERED: ONDANSETRON *ODT* 4 MG TABLET SL PRN (20:48)
[2018-05-18] MEDS ORDERED: MAGNESIUM HYDROX 2400MG/30ML ORAL SUSPENSION 30 ML CUP PO PRN (20:48)
[2018-05-18] MEDS ORDERED: IBUPROFEN 400 MG TABLET (FP) PO PRN (20:48)
[2018-05-18] MEDS ORDERED: MENTHOL/PHENOL 1 EACH UD MM PRN (20:48)
[2018-05-18] MEDS ORDERED: chlordiazePOXIDE HCL 25 MG CAPSULE PO PRN (20:48)
[2018-05-18] MEDS ORDERED: BISMUTH SUBSALICYLATE 524 MG/30 ML UD PO PRN (20:48)
[2018-05-18] MEDS ORDERED: MAGNESIUM CITRATE 300 ML BOTTLE PO PRN (20:48)
[2018-05-18] MEDS ORDERED: MELATONIN 5 MG TABLETS PO PRN (20:48)
[2018-05-18] MEDS: chlordiazePOXIDE HCL 25 MG CAPSULE PO SCH (22:25)
[2018-05-18] MEDS: THIAMINE HCL 100 MG TABLET (FP) PO SCH (22:28)
[2018-05-18] MEDS ORDERED: METHADONE HCL 10 MG TABLET (FOR DETOX USE ONLY) PO ONE (23:00)
[2018-05-19 05:09] LABS: URINE APPEARANCE TURBID; URINE BILIRUBIN NEGATIVE (NEGATIVE); URINE COLOR DK YELLOW; URINE GLUCOSE (UA) NEGATIVE (NEGATIVE); URINE KETONE TRACE (NEGATIVE); URINE LEUK ESTERASE NEGATIVE (NEGATIVE); URINE NITRITE NEGATIVE (NEGATIVE); URINE PROTEIN NEGATIVE (NEGATIVE)
[2018-05-19] MEDS: chlordiazePOXIDE HCL 25 MG CAPSULE PO SCH ×4 (05:40→22:19)
[2018-05-19] MEDS ORDERED: HYDROCORTISONE 1% TOPICAL OINT 30 GM TUBE TP PRN (09:29)
--- NOTE | 2018-05-19 09:29 | EKG ---
Test Reason : Blood Pressure : / mmHG Vent. Rate : 078 BPM Atrial Rate : 078 BPM P-R Int : 110 ms QRS Dur : 096 ms QT Int : 420 ms P-R-T Axes : 058 038 035 degrees QTc Int : 478 ms SINUS RHYTHM WITH MARKED SINUS ARRHYTHMIA WITH SHORT [place] OTHERWISE NORMAL ECG WHEN COMPARED WITH ECG OF 18-APR-2017 19:10, NO SIGNIFICANT CHANGE WAS FOUND Confirmed by KATIE WEST, MEGAN ([id number]) on 05/19/2018 9:29:09 AM Referred By: Confirmed By:MEGAN WILSON MD
[2018-05-19] MEDS ORDERED: METHADONE HCL 10 MG TABLET (FOR DETOX USE ONLY) PO ONE (10:00)
[2018-05-19] MEDS: PRENATAL VITAMINS W/ FOLIC ACID TABLET (FP) PO SCH (10:13)
[2018-05-19] MEDS: NICOTINE 14 MG/24 HOURS TOPICAL PATCH TD SCH (10:14)
[2018-05-19] MEDS: METHOCARBAMOL 500 MG TABLET PO PRN (10:15)
--- NOTE | 2018-05-19 10:23 | PN ---
[facility] CIWA - CIWA Score Nausea/Vomitin-No Nausea/No Vomiting Muscle Tremors: 4-Moderate,w/Arms Extend Anxiety: 4-Mod. Anxious/Guarded Agitation: 4-Moderately Restless Paroxysmal Sweats: 3 Orientation: 0-Oriented Tacttile Disturbances: 0-None Auditory Disturbances: 0-None Visual Disturbances: 0-None Headache: 0-None Present CIWA-Ar Total Score: 15 BHS COWS - Scale Resting Pulse: 0= [place] 80 or Below Sweatin=Flushed/Facial Moisture Restless Observation: 1= Difficult to Sit Still Pupil Size: 0= Normal to Room Light Bone or Joint Aches: 2= Severe Diffuse Aches Runny Nose/ Eye Tearin= Nasal Congestion GI Upset > 30mins: 2= Nausea/Diarrhea Tremor Observation of Outstretched Hands: 2= Slight Tremor Visible Yawning Observation: 2= >3x During Session Anxiety or Irritability: 2=Irritable/Anxious Goose Flesh Skin: 0=Smooth Skin COWS Score: 14 S Progress Note (SOAP) Subjective: body aches sweats shakes interrupted sleep nausea my face feels burning and itchy agitation Objective: 05/19/18 10:14 Vital Signs Temperature 97.5 F L 05/19/18 09:27 Pulse Rate 69 05/19/18 09:27 Respiratory Rate 18 05/19/18 09:27 Blood Pressure 123/66 05/19/18 09:27 O2 Sat by Pulse Oximetry (%) Laboratory Tests 05/19/18 00:05 Urine Color Dk yellow Urine Appearance Turbid Urine pH 5.0 Ur Specific [place] 1.028 Urine Protein Negative Urine Glucose (UA) Negative Urine Ketones Trace H Urine Blood Negative Urine Nitrite Negative Urine Bilirubin Negative Urine Urobilinogen 1.0 Ur Leukocyte Esterase Negative rest of labs pending aaox3 ambulating no acute distress face/forehead appear finesse/dry/flaky/ Assessment: 05/19/18 10:41 withdrawal sx Plan: continue detox increase fluids hydrocortizone 1% ointment
[2018-05-19] MEDS: cloNIDine HCL 0.1 MG TABLET PO PRN ×2 (11:54→17:33)
[2018-05-19 12:19] LABS: HEMATOCRIT 43.9 % (35.4-49); HEMOGLOBIN 15.4 GM/dL (11.7-16.9); MCH 31.8 pg (25.7-33.7); MEAN CELL VOLUME 90.9 fl (80-96); MEAN PLT VOLUME 9.4 fl (7.5-11.1); PLATELET COUNT 172 K/MM3 (134-434); RBC 4.83 M/mm3 (4.00-5.60); RDW 14.2 % (11.9-15.9); WHITE BLOOD COUNT 5.2 K/mm3 (4.0-10.0)
[2018-05-19 12:23] LABS: ALBUMIN 3.6 g/dl (3.4-5.0); ALK PHOS 108 U/L (45-117); ANION GAP 9 MMOL/L (8-16); BILIRUBIN,TOTAL 1.6 mg/dL (0.2-1); BLOOD UREA NITROGEN 18 mg/dL (7-18); CALCIUM 8.8 mg/dL (8.5-10.1); CHLORIDE 103 mmol/L (98-107); CO2 27 mmol/L (21-32); CREATININE 0.7 mg/dL (0.55-1.3); GLUCOSE,RANDOM 105 mg/dL (74-106); POTASSIUM 3.8 mmol/L (3.5-5.1); SGOT/AST 111 U/L (15-37); SGPT/ALT 84 U/L (13-61); SODIUM 140 mmol/L (136-145); TOT PROT 7.5 g/dl (6.4-8.2)
[2018-05-19] MEDS: THIAMINE HCL 100 MG TABLET (FP) PO SCH (22:19)
[2018-05-20] MEDS: chlordiazePOXIDE HCL 25 MG CAPSULE PO SCH ×3 (06:05→17:11)
[2018-05-20] MEDS ORDERED: METHADONE HCL 10 MG TABLET (FOR DETOX USE ONLY) PO ONE (10:00)
--- NOTE | 2018-05-20 10:17 | PN ---
[facility] CIWA - CIWA Score Nausea/Vomitin-No Nausea/No Vomiting Muscle Tremors: 4-Moderate,w/Arms Extend Anxiety: 3 Agitation: 4-Moderately Restless Paroxysmal Sweats: 3 Orientation: 0-Oriented Tacttile Disturbances: 0-None Auditory Disturbances: 0-None Visual Disturbances: 0-None Headache: 1-Very Mild CIWA-Ar Total Score: 15 BHS COWS - Scale Resting Pulse: 0= [place] 80 or Below Sweatin=Flushed/Facial Moisture Restless Observation: 1= Difficult to Sit Still Pupil Size: 0= Normal to Room Light Bone or Joint Aches: 2= Severe Diffuse Aches Runny Nose/ Eye Tearin= Nasal Congestion GI Upset > 30mins: 2= Nausea/Diarrhea Tremor Observation of Outstretched Hands: 0= None Yawning Observation: 2= >3x During Session Anxiety or Irritability: 2=Irritable/Anxious Goose Flesh Skin: 0=Smooth Skin COWS Score: 12 S Progress Note (SOAP) Subjective: restless legs sweats shakes chills body aches constipation Objective: 05/20/18 10:16 Vital Signs Temperature 97.7 F 05/20/18 09:51 Pulse Rate 60 05/20/18 09:51 Respiratory Rate 18 05/20/18 09:51 Blood Pressure 114/56 L 05/20/18 09:51 O2 Sat by Pulse Oximetry (%) Laboratory Tests 05/19/18 05/19/18 05/19/18 00:05 07:30 07:30 WBC 5.2 RBC 4.83 Hgb 15.4 Hct 43.9 MCV 90.9 MCH 31.8 MCHC 35.0 RDW 14.2 Plt Count 172 MPV 9.4 Sodium 140 Potassium 3.8 Chloride 103 Carbon Dioxide 27 Anion Gap 9 BUN 18 Creatinine 0.7 Creat Clearance w eGFR 131.54 Random Glucose 105 Calcium 8.8 Total Bilirubin 1.6 H AST 111 H ALT 84 H Alkaline Phosphatase 108 Total Protein 7.5 Albumin 3.6 Urine Color Dk yellow Urine Appearance Turbid Urine pH 5.0 Ur Specific [place] 1.028 Urine Protein Negative Urine Glucose (UA) Negative Urine Ketones Trace H Urine Blood Negative Urine Nitrite Negative Urine Bilirubin Negative Urine Urobilinogen 1.0 Ur Leukocyte Esterase Negative HIV 1&2 Antibody Screen HIV P24 Antigen 05/19/18 07:30 WBC RBC Hgb Hct MCV MCH MCHC RDW Plt Count MPV Sodium Potassium Chloride Carbon Dioxide Anion Gap BUN Creatinine Creat Clearance w eGFR Random Glucose Calcium Total Bilirubin AST ALT Alkaline Phosphatase Total Protein Albumin Urine Color Urine Appearance Urine pH Ur Specific [place] Urine Protein Urine Glucose (UA) Urine Ketones Urine Blood Urine Nitrite Urine Bilirubin Urine Urobilinogen Ur Leukocyte Esterase HIV 1&2 Antibody Screen Negative HIV P24 Antigen Negative aaox3 ambulating no acute distress labs noted elevated ast/alt; tylenol d/c Assessment: 05/20/18 10:17 withdrawal sx Plan: continue detox increase fluids MOM/citroma prn baclofen 10mg prn prune juice
[2018-05-20] MEDS ORDERED: BACLOFEN 10 MG TABLET (FP) PO ONE (10:30)
[2018-05-20] MEDS: NICOTINE 14 MG/24 HOURS TOPICAL PATCH TD SCH (10:55)
[2018-05-20] MEDS: PRENATAL VITAMINS W/ FOLIC ACID TABLET (FP) PO SCH (10:55)
[2018-05-20] MEDS: BACLOFEN 10 MG TABLET (FP) PO SCH ×2 (13:26→22:29)
[2018-05-20] MEDS: cloNIDine HCL 0.1 MG TABLET PO PRN (13:30)
[2018-05-20] MEDS: METHOCARBAMOL 500 MG TABLET PO PRN (17:15)
[2018-05-20] MEDS: THIAMINE HCL 100 MG TABLET (FP) PO SCH (22:28)
[2018-05-20] MEDS: chlordiazePOXIDE HCL 10 MG CAPSULE PO SCH (22:29)
[2018-05-20] MEDS ORDERED: chlordiazePOXIDE HCL 10 MG CAPSULE PO PRN (23:00)
[2018-05-21] MEDS: chlordiazePOXIDE HCL 10 MG CAPSULE PO SCH ×4 (05:58→22:37)
[2018-05-21] MEDS: BACLOFEN 10 MG TABLET (FP) PO SCH ×3 (06:00→22:38)
--- NOTE | 2018-05-21 09:45 | PN ---
BHS Progress Note (SOAP) Subjective: sweats shakes feeling much better Objective: 05/21/18 09:44 Vital Signs Temperature 97.2 F L 05/21/18 09:30 Pulse Rate 69 05/21/18 09:30 Respiratory Rate 18 05/21/18 09:30 Blood Pressure 122/62 05/21/18 09:30 O2 Sat by Pulse Oximetry (%) Laboratory Tests 05/19/18 05/19/18 05/19/18 00:05 07:30 07:30 WBC 5.2 RBC 4.83 Hgb 15.4 Hct 43.9 MCV 90.9 MCH 31.8 MCHC 35.0 RDW 14.2 Plt Count 172 MPV 9.4 Sodium 140 Potassium 3.8 Chloride 103 Carbon Dioxide 27 Anion Gap 9 BUN 18 Creatinine 0.7 Creat Clearance w eGFR 131.54 Random Glucose 105 Calcium 8.8 Total Bilirubin 1.6 H AST 111 H ALT 84 H Alkaline Phosphatase 108 Total Protein 7.5 Albumin 3.6 Urine Color Dk yellow Urine Appearance Turbid Urine pH 5.0 Ur Specific [place] 1.028 Urine Protein Negative Urine Glucose (UA) Negative Urine Ketones Trace H Urine Blood Negative Urine Nitrite Negative Urine Bilirubin Negative Urine Urobilinogen 1.0 Ur Leukocyte Esterase Negative HIV 1&2 Antibody Screen HIV P24 Antigen 05/19/18 07:30 WBC RBC Hgb Hct MCV MCH MCHC RDW Plt Count MPV Sodium Potassium Chloride Carbon Dioxide Anion Gap BUN Creatinine Creat Clearance w eGFR Random Glucose Calcium Total Bilirubin AST ALT Alkaline Phosphatase Total Protein Albumin Urine Color Urine Appearance Urine pH Ur Specific [place] Urine Protein Urine Glucose (UA) Urine Ketones Urine Blood Urine Nitrite Urine Bilirubin Urine Urobilinogen Ur Leukocyte Esterase HIV 1&2 Antibody Screen Negative HIV P24 Antigen Negative aaox3 ambulating no acute distress Assessment: 05/21/18 09:45 withdrawal sx Plan: continue detox increase fluids d/c in am
[2018-05-21] MEDS ORDERED: METHADONE HCL 10 MG TABLET (FOR DETOX USE ONLY) PO ONE (10:00)
[2018-05-21] MEDS: PRENATAL VITAMINS W/ FOLIC ACID TABLET (FP) PO SCH (10:12)
[2018-05-21] MEDS: NICOTINE 14 MG/24 HOURS TOPICAL PATCH TD SCH (10:13)
[2018-05-21] MEDS: METHOCARBAMOL 500 MG TABLET PO PRN ×2 (13:56→22:38)
[2018-05-21] MEDS: THIAMINE HCL 100 MG TABLET (FP) PO SCH (22:38)
[2018-05-22] MEDS: BACLOFEN 10 MG TABLET (FP) PO SCH (05:44)
[2018-05-22] MEDS ORDERED: METHADONE HCL 5 MG TABLET (FOR DETOX USE ONLY) PO ONE (06:00)
[2018-05-22 06:23] VITALS: BP 113/62; PULSE 62; TEMP 97.3
--- NOTE | 2018-05-22 09:17 | DS ---
[facility] Detox Discharge Summary Admission Date: 05/18/18 Discharge Date: 05/22/18 - History Present History: Alcohol Dependence, Opioid Dependence - Physical Exam Results Vital Signs: Vital Signs Temperature 97.3 F L 05/22/18 06:00 Pulse Rate 62 05/22/18 06:00 Respiratory Rate 18 05/22/18 06:00 Blood Pressure 113/62 05/22/18 06:00 O2 Sat by Pulse Oximetry (%) - Treatment Hospital Course: Detox Protocol Followed, Detoxed Safely, Responded well, Discharged Condition Good, Rehab Referral Accepted - Medication Discharge Medications: Ambulatory Orders NK [No Known Home Medication] 05/18/18 - Diagnosis (1) Alcohol dependence with uncomplicated withdrawal Current Visit: Yes Status: Chronic (2) Opioid dependence with withdrawal Current Visit: Yes Status: Chronic (3) Nicotine dependence Current Visit: Yes Status: Chronic Qualifiers: Nicotine product type: cigarettes Substance use status: uncomplicated Qualified Code(s): F17.210 - Nicotine dependence, cigarettes, uncomplicated (4) Rash of face Current Visit: Yes Status: Chronic (5) Weight loss Current Visit: Yes Status: Chronic (6) Anxious mood Current Visit: No Status: Acute (7) Insomnia Current Visit: Yes Status: Chronic Qualifiers: Insomnia type: primary Qualified Code(s): F51.01 - Primary insomnia (8) Depression Current Visit: No Status: Chronic Qualifiers: Depression Type: unspecified Qualified Code(s): F32.9 - Major depressive disorder, single episode, unspecified (9) PTSD (post-traumatic stress disorder) Current Visit: No Status: Chronic (10) Posttraumatic stress disorder with dissociative symptoms Current Visit: Yes Status: Chronic - AMA Did Patient Leave Against Medical Advice: No (going to outpatient rehab)
[2018-05-22] MEDS ORDERED: hydrOXYzine PAMOATE 25 MG CAPSULE (FP) PO ONE (09:35)
[2018-05-22] MEDS: chlordiazePOXIDE HCL 10 MG CAPSULE PO SCH (10:19)
[2018-05-22] MEDS: NICOTINE 14 MG/24 HOURS TOPICAL PATCH TD SCH (10:20)
[2018-05-22] MEDS: PRENATAL VITAMINS W/ FOLIC ACID TABLET (FP) PO SCH (10:20)
== END 2018-05-22 10:26 | disposition home or self-care (01) | DRG 773 ==
LOC: YASAS 13:01 → Y6N 21:17
PROVIDERS: ADMIT Surgery; ATTEND Surgery
PROC: HZ2ZZZZ Detoxification Services for Substance Abuse Treatment (ICD-10-PCS; principal; 2018-05-18)
DX: F11.23 Opioid dependence with withdrawal (principal); F10.230 Alcohol dependence with withdrawal, uncomplicated; F17.210 Nicotine dependence, cigarettes, uncomplicated; F41.8 Other specified anxiety disorders; F32.9 Major depressive disorder, single episode, unspecified; F51.05 Insomnia due to other mental disorder; F43.10 Post-traumatic stress disorder, unspecified; R21 Rash and other nonspecific skin eruption; R63.4 Abnormal weight loss; Z68.23 Body mass index [BMI] 23.0-23.9, adult
CPT/HCPCS: 36415; 80053; 81003; 85027; 87389; 93005; 93010; J0475; J0735

== ENCOUNTER 2021-02-26 13:12 | Inpatient (IN) | payer OTHER ==
[2021-02-26] MEDS ORDERED: ACETAMINOPHEN 325 MG TABLET (FP) PO PRN (13:49)
[2021-02-26] MEDS ORDERED: MENTHOL/PHENOL 1 EACH UD MM PRN (13:49)
[2021-02-26] MEDS ORDERED: MAGNESIUM HYDROX 2400MG/30ML ORAL SUSPENSION 30 ML CUP PO PRN (13:49)
[2021-02-26] MEDS ORDERED: chlordiazePOXIDE HCL 25 MG CAPSULE PO PRN (13:49)
[2021-02-26] MEDS ORDERED: BISMUTH SUBSALICYLATE 524 MG/30 ML PO PRN (13:49)
[2021-02-26] MEDS ORDERED: MAG HYDROX/AL HYDROX/SIMETH 30 ML UNIT-DOSE CUP PO PRN (13:49)
[2021-02-26] MEDS ORDERED: NICOTINE 10 MG CARTRIDGE (INHALER) IH PRN (13:49)
[2021-02-26] MEDS ORDERED: ONDANSETRON *ODT* 4 MG TABLET SL PRN (13:49)
[2021-02-26] MEDS ORDERED: MAGNESIUM CITRATE 300 ML BOTTLE PO PRN (13:49)
[2021-02-26] MEDS ORDERED: BUPRENORPHINE/NALOXONE 8 MG/2 MG FILM PACKET SL SCH (14:00)
[2021-02-26 18:40] VITALS: BMI 23.8
[2021-02-26] MEDS: BUPRENORPHINE/NALOXONE 8 MG/2 MG FILM PACKET SL SCH ×2 (19:56→23:53)
[2021-02-26] MEDS: chlordiazePOXIDE HCL 25 MG CAPSULE PO SCH ×2 (20:07→22:01)
[2021-02-26] MEDS: hydrOXYzine PAMOATE 25 MG CAPSULE (FP) PO SCH ×2 (20:09→22:02)
[2021-02-26] MEDS: THIAMINE HCL 100 MG TABLET (FP) PO SCH (22:01)
[2021-02-26] MEDS: MELATONIN 5 MG TABLETS PO SCH (22:02)
[2021-02-26] MEDS ORDERED: TRIMETHOBENZAMIDE HCL 200MG/2ML INJ IM ONE (22:09)
[2021-02-27] MEDS: ACETAMINOPHEN 325 MG TABLET (FP) PO PRN (00:39)
[2021-02-27] MEDS: METHOCARBAMOL 500 MG TABLET PO PRN ×3 (00:39→18:26)
[2021-02-27] MEDS: hydrOXYzine PAMOATE 25 MG CAPSULE (FP) PO SCH ×4 (06:21→18:26)
[2021-02-27] MEDS: chlordiazePOXIDE HCL 25 MG CAPSULE PO SCH ×3 (06:21→18:26)
[2021-02-27] MEDS: PRENATAL VITAMINS W/ FOLIC ACID TABLET (FP) PO SCH (09:11)
[2021-02-27] MEDS: BUPRENORPHINE/NALOXONE 8 MG/2 MG FILM PACKET SL SCH (09:11)
[2021-02-27] MEDS: IBUPROFEN 400 MG TABLET (FP) PO PRN ×2 (09:13→18:26)
[2021-02-27 12:23] LABS: HEMATOCRIT 44.6 % (35.4-49); HEMOGLOBIN 14.9 GM/dL (11.7-16.9); MCH 29.6 pg (25.7-33.7); MCHC 33.3 g/dl (32.0-35.9); MEAN CELL VOLUME 88.9 fl (80-96); MEAN PLT VOLUME 10.6 fl (7.5-11.1); PLATELET COUNT 255 10^3/uL (134-434); RBC 5.02 M/mm3 (4.00-5.60); RDW 13.2 % (11.9-15.9); WHITE BLOOD COUNT 4.1 K/mm3 (4.0-10.0)
[2021-02-27 12:28] LABS: ALBUMIN 3.8 g/dl (3.4-5.0); CALCIUM 9.1 mg/dL (8.5-10.1)
[2021-02-27 12:29] LABS: BLOOD UREA NITROGEN 8.9 mg/dL (7-18)
[2021-02-27 12:32] LABS: CREATININE 0.7 mg/dL (0.55-1.3)
[2021-02-27 12:33] LABS: BILIRUBIN,TOTAL 0.7 mg/dL (0.2-1); TOT PROT 8.5 g/dl (6.4-8.2)
[2021-02-28] MEDS: chlordiazePOXIDE HCL 25 MG CAPSULE PO SCH ×5 (01:20→22:58)
[2021-02-28] MEDS: BUPRENORPHINE/NALOXONE 8 MG/2 MG FILM PACKET SL SCH ×3 (01:20→22:59)
[2021-02-28] MEDS: MELATONIN 5 MG TABLETS PO SCH ×2 (01:20→22:59)
[2021-02-28] MEDS: THIAMINE HCL 100 MG TABLET (FP) PO SCH ×2 (01:21→22:58)
[2021-02-28] MEDS: hydrOXYzine PAMOATE 25 MG CAPSULE (FP) PO SCH ×6 (01:21→22:59)
[2021-02-28] MEDS: METHOCARBAMOL 500 MG TABLET PO PRN ×2 (06:11→12:13)
[2021-02-28] MEDS: PRENATAL VITAMINS W/ FOLIC ACID TABLET (FP) PO SCH (10:49)
[2021-02-28] MEDS: IBUPROFEN 400 MG TABLET (FP) PO PRN (12:13)
[2021-02-28] MEDS ORDERED: DICYCLOMINE HCL 10 MG CAPSULE PO ONE (14:44)
[2021-02-28] MEDS: CYCLOBENZAPRINE HCL 10 MG TABLET (FP) PO SCH ×2 (15:25→22:58)
[2021-02-28] MEDS: COLLOIDAL OATMEAL 1 BAR EACH TP PRN (23:39)
[2021-03-01] MEDS ORDERED: chlordiazePOXIDE HCL 10 MG CAPSULE PO PRN
[2021-03-01] MEDS: hydrOXYzine PAMOATE 25 MG CAPSULE (FP) PO SCH ×5 (07:06→22:52)
[2021-03-01] MEDS: CYCLOBENZAPRINE HCL 10 MG TABLET (FP) PO SCH ×3 (07:06→22:52)
[2021-03-01] MEDS: chlordiazePOXIDE HCL 10 MG CAPSULE PO SCH ×4 (07:06→22:52)
[2021-03-01] MEDS: IBUPROFEN 400 MG TABLET (FP) PO PRN (10:49)
[2021-03-01] MEDS: PRENATAL VITAMINS W/ FOLIC ACID TABLET (FP) PO SCH (10:49)
[2021-03-01] MEDS: BUPRENORPHINE/NALOXONE 8 MG/2 MG FILM PACKET SL SCH ×2 (10:50→22:54)
[2021-03-01] MEDS: ACETAMINOPHEN 325 MG TABLET (FP) PO PRN (19:04)
[2021-03-01] MEDS: MELATONIN 5 MG TABLETS PO SCH (22:51)
[2021-03-01] MEDS: THIAMINE HCL 100 MG TABLET (FP) PO SCH (22:51)
[2021-03-02] MEDS: CYCLOBENZAPRINE HCL 10 MG TABLET (FP) PO SCH ×3 (05:37→23:22)
[2021-03-02] MEDS: hydrOXYzine PAMOATE 25 MG CAPSULE (FP) PO SCH ×5 (05:37→23:21)
[2021-03-02] MEDS: chlordiazePOXIDE HCL 10 MG CAPSULE PO SCH ×2 (05:38→20:43)
[2021-03-02] MEDS: PRENATAL VITAMINS W/ FOLIC ACID TABLET (FP) PO SCH (11:10)
[2021-03-02] MEDS: BUPRENORPHINE/NALOXONE 8 MG/2 MG FILM PACKET SL SCH ×2 (11:11→23:23)
[2021-03-02] MEDS ORDERED: HYDROCORTISONE 1% TOPICAL LOTION 118 ML BOTTLE TP PRN (11:28)
[2021-03-02] MEDS: IBUPROFEN 400 MG TABLET (FP) PO PRN ×2 (20:41→23:21)
[2021-03-02] MEDS ORDERED: SUVOREXANT 10 MG TABLET PO PRN (22:00)
[2021-03-02] MEDS: THIAMINE HCL 100 MG TABLET (FP) PO SCH (23:20)
[2021-03-03] MEDS ORDERED: chlordiazePOXIDE HCL 10 MG CAPSULE PO ONE (05:00)
[2021-03-03] MEDS: CYCLOBENZAPRINE HCL 10 MG TABLET (FP) PO SCH ×3 (06:52→22:00)
[2021-03-03] MEDS: hydrOXYzine PAMOATE 25 MG CAPSULE (FP) PO SCH ×5 (06:52→22:41)
[2021-03-03] MEDS: ACETAMINOPHEN 325 MG TABLET (FP) PO PRN (07:00)
[2021-03-03] MEDS: PRENATAL VITAMINS W/ FOLIC ACID TABLET (FP) PO SCH (11:22)
[2021-03-03] MEDS: BUPRENORPHINE/NALOXONE 8 MG/2 MG FILM PACKET SL SCH ×2 (11:23→22:40)
[2021-03-03] MEDS: THIAMINE HCL 100 MG TABLET (FP) PO SCH (22:42)
[2021-03-04] MEDS: hydrOXYzine PAMOATE 25 MG CAPSULE (FP) PO SCH ×2 (06:03→10:00)
[2021-03-04] MEDS: CYCLOBENZAPRINE HCL 10 MG TABLET (FP) PO SCH ×3 (06:03→22:53)
[2021-03-04] MEDS: BUPRENORPHINE/NALOXONE 8 MG/2 MG FILM PACKET SL SCH ×2 (09:58→22:53)
[2021-03-04] MEDS: PRENATAL VITAMINS W/ FOLIC ACID TABLET (FP) PO SCH (09:58)
[2021-03-04] MEDS: COLLOIDAL OATMEAL 1 BAR EACH TP PRN (13:05)
[2021-03-04] MEDS: HYDROCORTISONE 1% TOPICAL CREAM 30 GM TUBE TP SCH (19:07)
[2021-03-04] MEDS: THIAMINE HCL 100 MG TABLET (FP) PO SCH (22:53)
[2021-03-05] MEDS: CYCLOBENZAPRINE HCL 10 MG TABLET (FP) PO SCH ×2 (06:36→14:01)
[2021-03-05] MEDS: HYDROCORTISONE 1% TOPICAL CREAM 30 GM TUBE TP SCH (10:24)
[2021-03-05] MEDS: PRENATAL VITAMINS W/ FOLIC ACID TABLET (FP) PO SCH (10:25)
[2021-03-05] MEDS: BUPRENORPHINE/NALOXONE 8 MG/2 MG FILM PACKET SL SCH (10:25)
[2021-03-05] MEDS: IBUPROFEN 400 MG TABLET (FP) PO PRN (10:29)
[2021-03-05 17:45] VITALS: BP 94/60; PULSE 98; TEMP 98
== END 2021-03-05 18:25 | disposition home or self-care (01) | DRG 773 ==
LOC: YASAS 13:12 → Y6N 18:05
PROVIDERS: ADMIT Allergy & Immunology; ATTEND Allergy & Immunology
PROC: HZ2ZZZZ Detoxification Services for Substance Abuse Treatment (ICD-10-PCS; principal; 2021-02-26)
DX: F11.23 Opioid dependence with withdrawal (principal); F10.230 Alcohol dependence with withdrawal, uncomplicated; F17.210 Nicotine dependence, cigarettes, uncomplicated; F19.282 Other psychoactive substance dependence with psychoactive substance-induced sleep disorder; F19.24 Other psychoactive substance dependence with psychoactive substance-induced mood disorder; F51.05 Insomnia due to other mental disorder; F32.A Depression, unspecified; F43.10 Post-traumatic stress disorder, unspecified; U07.1 COVID-19; R21 Rash and other nonspecific skin eruption; R63.4 Abnormal weight loss; Z68.23 Body mass index [BMI] 23.0-23.9, adult; Z51.81 Encounter for therapeutic drug level monitoring; Z79.899 Other long term (current) drug therapy; Z91.010 Allergy to peanuts
CPT/HCPCS: 36415; 80053; 85027; 86780; C9803-CS; Q0162; U0003; U0005

== ENCOUNTER 2021-10-13 13:15 | Inpatient (IN) | payer OTHER ==
[2021-10-13 15:44] VITALS: BMI 20.3
[2021-10-13] MEDS ORDERED: ACETAMINOPHEN 325 MG TABLET (FP) PO PRN ×2 (18:10)
[2021-10-13] MEDS ORDERED: BISMUTH SUBSALICYLATE 524 MG/30 ML PO PRN (18:10)
[2021-10-13] MEDS ORDERED: IBUPROFEN 600 MG TABLET (FP) PO PRN (18:10)
[2021-10-13] MEDS ORDERED: MAGNESIUM CITRATE 300 ML BOTTLE PO PRN (18:10)
[2021-10-13] MEDS ORDERED: ONDANSETRON *ODT* 4 MG TABLET SL PRN (18:10)
[2021-10-13] MEDS ORDERED: cloNIDine HCL 0.1 MG TABLET PO PRN (18:10)
[2021-10-13] MEDS ORDERED: MAGNESIUM HYDROX 2400MG/30ML ORAL SUSPENSION 30 ML CUP PO PRN (18:10)
[2021-10-13] MEDS ORDERED: IBUPROFEN 400 MG TABLET (FP) PO PRN (18:10)
[2021-10-13] MEDS ORDERED: NICOTINE 10 MG CARTRIDGE (INHALER) IH PRN (18:10)
[2021-10-13] MEDS ORDERED: DICYCLOMINE HCL 10 MG CAPSULE PO PRN (18:10)
[2021-10-13] MEDS ORDERED: LOPERAMIDE HCL 2 MG CAPSULE PO PRN (18:10)
[2021-10-13] MEDS ORDERED: BENZOCAINE/MENTHOL (CHLORASEPTIC ) LOZENGE MM PRN (18:10)
[2021-10-13] MEDS ORDERED: methaDONE HCL 10 MG TABLET (FOR DETOX USE ONLY) PO ONE (18:10)
[2021-10-13] MEDS ORDERED: MAG HYDROX/AL HYDROX/SIMETH 30 ML UNIT-DOSE CUP PO PRN (18:10)
[2021-10-13] MEDS ORDERED: HYDROCORTISONE 0.5% TOPICAL CREAM 30 GM TUBE TP ONE (18:19)
[2021-10-13] MEDS ORDERED: BACITRACIN 15 GM TUBE TOPICAL OINTMENT TP SCH (18:30)
[2021-10-13] MEDS ORDERED: methaDONE HCL 10 MG TABLET (FOR DETOX USE ONLY) ONE (18:39)
[2021-10-13] MEDS ORDERED: IBUPROFEN 400 MG TABLET (FP) PO ONE (19:40)
[2021-10-13] MEDS: chlordiazePOXIDE HCL 25 MG CAPSULE PO PRN (20:20)
[2021-10-13] MEDS ORDERED: MELATONIN 5 MG TABLETS PO SCH (22:00)
[2021-10-13] MEDS: hydrOXYzine PAMOATE 25 MG CAPSULE (FP) PO SCH (22:22)
[2021-10-13] MEDS: THIAMINE HCL 100 MG TABLET (FP) PO SCH (22:22)
[2021-10-13] MEDS: traZODone HCL 50 MG TABLET (FP) PO PRN (22:24)
[2021-10-13] MEDS: chlordiazePOXIDE HCL 25 MG CAPSULE PO SCH (23:43)
[2021-10-13] MEDS: COLLOIDAL OATMEAL 1 EACH PACKET TP SCH (23:43)
[2021-10-14] MEDS: hydrOXYzine PAMOATE 25 MG CAPSULE (FP) PO SCH ×5 (05:38→23:15)
[2021-10-14] MEDS: chlordiazePOXIDE HCL 25 MG CAPSULE PO SCH ×4 (05:38→23:15)
[2021-10-14] MEDS: BACITRACIN 0.9 GM PACKET TP SCH (11:25)
[2021-10-14] MEDS: PRENATAL VITAMINS W/ FOLIC ACID TABLET (FP) PO SCH (11:25)
[2021-10-14] MEDS: METHOCARBAMOL 500 MG TABLET PO PRN ×3 (11:27→23:16)
[2021-10-14 14:34] LABS: HEMATOCRIT 39.7 % (35.4-49); HEMOGLOBIN 13.8 GM/dL (11.7-16.9); MCH 29.3 pg (25.7-33.7); MCHC 34.7 g/dl (32.0-35.9); MEAN CELL VOLUME 84.5 fl (80-96); MEAN PLT VOLUME 8.6 fl (7.5-11.1); PLATELET COUNT 169 10^3/uL (134-434); RDW 13.6 % (11.9-15.9); WHITE BLOOD COUNT 4.4 K/mm3 (4.0-10.0)
[2021-10-14 14:43] LABS: ALBUMIN 3.1 g/dl (3.4-5.0); BLOOD UREA NITROGEN 9.9 mg/dL (7-18)
[2021-10-14 14:46] LABS: CREATININE 0.5 mg/dL (0.55-1.3)
[2021-10-14 14:47] LABS: BILIRUBIN,TOTAL 1.2 mg/dL (0.2-1)
[2021-10-14] MEDS: chlordiazePOXIDE HCL 25 MG CAPSULE PO PRN (15:31)
[2021-10-14 15:37] LABS: HIV INTERPRETATION NEGATIVE (NEGATIVE)
[2021-10-14] MEDS: COLLOIDAL OATMEAL 1 EACH PACKET TP SCH (21:05)
[2021-10-14] MEDS: THIAMINE HCL 100 MG TABLET (FP) PO SCH (23:15)
[2021-10-14] MEDS: SUVOREXANT 10 MG TABLET PO PRN (23:16)
[2021-10-15] MEDS: chlordiazePOXIDE HCL 25 MG CAPSULE PO SCH ×4 (06:15→22:38)
[2021-10-15] MEDS: hydrOXYzine PAMOATE 25 MG CAPSULE (FP) PO SCH ×5 (06:15→22:38)
[2021-10-15] MEDS ORDERED: methaDONE HCL 10 MG TABLET (FOR DETOX USE ONLY) PO ONE (10:00)
[2021-10-15] MEDS: PRENATAL VITAMINS W/ FOLIC ACID TABLET (FP) PO SCH (10:06)
[2021-10-15] MEDS: BACITRACIN 0.9 GM PACKET TP SCH (10:06)
[2021-10-15] MEDS ORDERED: IBUPROFEN 400 MG TABLET (FP) PO ONE (12:15)
[2021-10-15] MEDS ORDERED: chlordiazePOXIDE HCL 25 MG CAPSULE PO ONE (14:00)
[2021-10-15] MEDS: COLLOIDAL OATMEAL 1 BAR EACH TP SCH (15:53)
[2021-10-15] MEDS: METHOCARBAMOL 500 MG TABLET PO PRN (17:36)
[2021-10-15] MEDS: THIAMINE HCL 100 MG TABLET (FP) PO SCH (22:38)
[2021-10-15] MEDS: SUVOREXANT 10 MG TABLET PO PRN (22:39)
[2021-10-16] MEDS ORDERED: chlordiazePOXIDE HCL 10 MG CAPSULE PO PRN
[2021-10-16] MEDS ORDERED: chlordiazePOXIDE HCL 10 MG CAPSULE PO SCH (05:00)
[2021-10-16] MEDS: hydrOXYzine PAMOATE 25 MG CAPSULE (FP) PO SCH ×5 (05:27→22:09)
[2021-10-16] MEDS ORDERED: LORazepam 0.5 MG TABLET PO PRN (10:24)
[2021-10-16] MEDS: COLLOIDAL OATMEAL 1 BAR EACH TP SCH (10:25)
[2021-10-16] MEDS: METHOCARBAMOL 500 MG TABLET PO PRN ×2 (10:26→17:46)
[2021-10-16] MEDS: PRENATAL VITAMINS W/ FOLIC ACID TABLET (FP) PO SCH (10:26)
[2021-10-16] MEDS: BACITRACIN 0.9 GM PACKET TP SCH (10:29)
[2021-10-16] MEDS: HYDROCORTISONE 1% TOPICAL CREAM 30 GM TUBE TP SCH (12:52)
[2021-10-16] MEDS: LORazepam 0.5 MG TABLET PO SCH ×2 (13:22→22:10)
[2021-10-16] MEDS: SUVOREXANT 10 MG TABLET PO PRN (22:09)
[2021-10-16] MEDS: THIAMINE HCL 100 MG TABLET (FP) PO SCH (22:09)
[2021-10-17] MEDS: traZODone HCL 50 MG TABLET (FP) PO PRN ×2 (03:27→22:45)
[2021-10-17] MEDS ORDERED: chlordiazePOXIDE HCL 10 MG CAPSULE PO SCH (05:00)
[2021-10-17] MEDS: hydrOXYzine PAMOATE 25 MG CAPSULE (FP) PO SCH ×4 (06:24→17:45)
[2021-10-17] MEDS: LORazepam 0.5 MG TABLET PO SCH ×2 (06:25→17:43)
[2021-10-17] MEDS ORDERED: methaDONE HCL 10 MG TABLET (FOR DETOX USE ONLY) PO ONE (10:00)
[2021-10-17] MEDS: PRENATAL VITAMINS W/ FOLIC ACID TABLET (FP) PO SCH (10:32)
[2021-10-17] MEDS: COLLOIDAL OATMEAL 1 BAR EACH TP SCH (10:32)
[2021-10-17] MEDS: HYDROCORTISONE 1% TOPICAL CREAM 30 GM TUBE TP SCH (10:33)
[2021-10-17] MEDS: METHOCARBAMOL 500 MG TABLET PO PRN (10:33)
[2021-10-17] MEDS ORDERED: FLUCONAZOLE 150 MG TABLET PO ONE (21:00)
[2021-10-17] MEDS: SUVOREXANT 10 MG TABLET PO PRN (21:57)
[2021-10-17] MEDS: THIAMINE HCL 100 MG TABLET (FP) PO SCH (22:45)
[2021-10-18] MEDS ORDERED: chlordiazePOXIDE HCL 10 MG CAPSULE PO ONE (05:00)
[2021-10-18] MEDS: METHOCARBAMOL 500 MG TABLET PO PRN ×2 (05:45→11:13)
[2021-10-18] MEDS ORDERED: LORazepam 0.5 MG TABLET PO ONE (06:00)
[2021-10-18 10:02] VITALS: RESP 18
[2021-10-18] MEDS: PRENATAL VITAMINS W/ FOLIC ACID TABLET (FP) PO SCH (10:19)
[2021-10-18] MEDS: COLLOIDAL OATMEAL 1 BAR EACH TP SCH (10:19)
[2021-10-18 13:42] VITALS: BP 106/65; PULSE 80; TEMP 98.1
== END 2021-10-18 16:18 | disposition other institution (70) | DRG 773 ==
LOC: YASAS 13:15 → Y6N 15:36
PROVIDERS: ADMIT Allergy & Immunology; ATTEND Surgery
PROC: HZ2ZZZZ Detoxification Services for Substance Abuse Treatment (ICD-10-PCS; principal; 2021-10-13)
DX: F11.23 Opioid dependence with withdrawal (principal); F10.230 Alcohol dependence with withdrawal, uncomplicated; F17.210 Nicotine dependence, cigarettes, uncomplicated; F19.280 Other psychoactive substance dependence with psychoactive substance-induced anxiety disorder; F19.282 Other psychoactive substance dependence with psychoactive substance-induced sleep disorder; F32.A Depression, unspecified; F43.10 Post-traumatic stress disorder, unspecified; B18.2 Chronic viral hepatitis C; R21 Rash and other nonspecific skin eruption; R63.4 Abnormal weight loss; Z68.20 Body mass index [BMI] 20.0-20.9, adult; Z86.16 Personal history of COVID-19; Z28.310 Unvaccinated for COVID-19; Z28.9 Immunization not carried out for unspecified reason; Z88.0 Allergy status to penicillin; Z91.010 Allergy to peanuts
CPT/HCPCS: 36415; 80053; 85027; 86780; 87389; 87811; 93005; 93010; C9803-CS; J0735; Q0162; U0003; U0005

== ENCOUNTER 2022-05-16 12:36 | Inpatient (IN) | payer OTHER ==
[2022-05-16 13:08] VITALS: BMI 19.8
[2022-05-16] MEDS ORDERED: cloNIDine HCL 0.1 MG TABLET PO PRN (14:18)
[2022-05-16] MEDS ORDERED: POLYETHYLENE GLYCOL (HEALTHYLAX) 3350 17 GM PACKET PO PRN (14:18)
[2022-05-16] MEDS ORDERED: NALOXONE HCL 0.4 MG/ML VIAL IM PRN (14:18)
[2022-05-16] MEDS ORDERED: ACETAMINOPHEN 325 MG TABLET (FP) PO PRN (14:18)
[2022-05-16] MEDS ORDERED: LOPERAMIDE HCL 2 MG CAPSULE PO PRN (14:18)
[2022-05-16] MEDS ORDERED: BENZOCAINE/MENTHOL (CHLORASEPTIC ) LOZENGE MM PRN (14:18)
[2022-05-16] MEDS ORDERED: MAG HYDROX/AL HYDROX/SIMETH 30 ML UNIT-DOSE CUP PO PRN (14:18)
[2022-05-16] MEDS ORDERED: MAGNESIUM HYDROX 2400MG/30ML ORAL SUSPENSION 30 ML CUP PO PRN (14:18)
[2022-05-16] MEDS ORDERED: chlordiazePOXIDE HCL 25 MG CAPSULE PO PRN (14:18)
[2022-05-16] MEDS ORDERED: chlordiazePOXIDE HCL 25 MG CAPSULE PO ONE (14:18)
[2022-05-16] MEDS ORDERED: BENZONATATE 200 MG CAPSULE PO PRN (14:18)
[2022-05-16] MEDS ORDERED: NALOXONE HCL (KLOXXADO) 8 MG SPRAY NS PRN (14:18)
[2022-05-16] MEDS ORDERED: methaDONE HCL 10 MG TABLET (FOR DETOX USE ONLY) PO ONE (14:18)
[2022-05-16] MEDS ORDERED: guaiFENesin 600 MG TABLET.ER (FP) PO PRN (14:18)
[2022-05-16] MEDS ORDERED: BISMUTH SUBSALICYLATE 262 MG/15 ML BTL PO PRN (14:18)
[2022-05-16] MEDS ORDERED: IBUPROFEN 400 MG TABLET (FP) PO PRN (14:18)
[2022-05-16] MEDS ORDERED: DICYCLOMINE HCL 10 MG CAPSULE PO PRN (14:18)
[2022-05-16] MEDS ORDERED: NICOTINE 10 MG CARTRIDGE (INHALER) IH PRN (14:18)
[2022-05-16] MEDS ORDERED: chlordiazePOXIDE HCL 25 MG CAPSULE ONE (15:05)
[2022-05-16] MEDS ORDERED: PRENATAL VITAMINS W/ FOLIC ACID TABLET (FP) PO ONE (15:06)
[2022-05-16] MEDS ORDERED: methaDONE HCL 10 MG TABLET (FOR DETOX USE ONLY) ONE (15:06)
[2022-05-16] MEDS: PRENATAL VITAMINS W/ FOLIC ACID TABLET (FP) PO SCH (15:15)
[2022-05-16] MEDS ORDERED: NICOTINE 14 MG/24 HOURS TOPICAL PATCH TD ONE (15:16)
[2022-05-16] MEDS: NICOTINE 14 MG/24 HOURS TOPICAL PATCH TD SCH (15:19)
[2022-05-16] MEDS: chlordiazePOXIDE HCL 25 MG CAPSULE PO SCH ×2 (17:29→22:41)
[2022-05-16] MEDS: METHOCARBAMOL 500 MG TABLET PO PRN (17:30)
[2022-05-16] MEDS: ONDANSETRON *ODT* 4 MG TABLET SL PRN (17:31)
[2022-05-16 18:44] LABS: HEMATOCRIT 39.7 % (35.4-49); HEMOGLOBIN 13.4 GM/dL (11.7-16.9); MCH 28.7 pg (25.7-33.7); MCHC 33.7 g/dl (32.0-35.9); MEAN CELL VOLUME 85.1 fl (80-96); MEAN PLT VOLUME 9.9 fl (7.5-11.1); PLATELET COUNT 278 10^3/uL (134-434); RBC 4.66 M/mm3 (4.00-5.60); RDW 14.8 % (11.9-15.9); WHITE BLOOD COUNT 7.8 K/mm3 (4.0-10.0)
[2022-05-16 18:53] LABS: CALCIUM 9.1 mg/dL (8.5-10.1)
[2022-05-16 18:54] LABS: ALBUMIN 3.6 g/dl (3.4-5.0); BLOOD UREA NITROGEN 11.5 mg/dL (7-18)
[2022-05-16 18:57] LABS: CREATININE 0.6 mg/dL (0.55-1.3)
[2022-05-16 18:59] LABS: BILIRUBIN,TOTAL 0.8 mg/dL (0.2-1); TOT PROT 7.6 g/dl (6.4-8.2)
[2022-05-16] MEDS ORDERED: MELATONIN 5 MG TABLETS PO SCH (22:00)
[2022-05-16] MEDS: THIAMINE HCL 100 MG TABLET (FP) PO SCH (22:41)
[2022-05-16] MEDS: hydrOXYzine PAMOATE 25 MG CAPSULE (FP) PO PRN (22:42)
[2022-05-17] MEDS: chlordiazePOXIDE HCL 25 MG CAPSULE PO SCH ×4 (06:03→22:16)
[2022-05-17] MEDS: PRENATAL VITAMINS W/ FOLIC ACID TABLET (FP) PO SCH (10:25)
[2022-05-17] MEDS: METHOCARBAMOL 500 MG TABLET PO PRN ×2 (10:25→18:02)
[2022-05-17] MEDS: LACTULOSE 20 GM/30 ML UDC (FOR ORAL USE ONLY) PO SCH ×4 (10:30→22:16)
[2022-05-17] MEDS: NICOTINE 14 MG/24 HOURS TOPICAL PATCH TD SCH (10:30)
[2022-05-17] MEDS: THIAMINE HCL 100 MG TABLET (FP) PO SCH (22:16)
[2022-05-17] MEDS: SUVOREXANT 10 MG TABLET PO PRN (22:18)
[2022-05-18] MEDS: chlordiazePOXIDE HCL 25 MG CAPSULE PO SCH ×4 (06:04→22:01)
[2022-05-18] MEDS: IBUPROFEN 600 MG TABLET (FP) PO PRN ×2 (06:06→21:59)
[2022-05-18] MEDS ORDERED: methaDONE HCL 10 MG TABLET (FOR DETOX USE ONLY) PO ONE (10:00)
[2022-05-18] MEDS: PRENATAL VITAMINS W/ FOLIC ACID TABLET (FP) PO SCH (10:44)
[2022-05-18] MEDS: LACTULOSE 20 GM/30 ML UDC (FOR ORAL USE ONLY) PO SCH ×4 (10:44→22:00)
[2022-05-18] MEDS: hydrOXYzine PAMOATE 25 MG CAPSULE (FP) PO PRN (10:44)
[2022-05-18] MEDS: METHOCARBAMOL 500 MG TABLET PO PRN ×2 (10:44→16:45)
[2022-05-18] MEDS: NICOTINE 14 MG/24 HOURS TOPICAL PATCH TD SCH (10:46)
[2022-05-18] MEDS ORDERED: COLLOIDAL OATMEAL 1 BAR EACH TP PRN (14:18)
[2022-05-18] MEDS: THIAMINE HCL 100 MG TABLET (FP) PO SCH (21:59)
[2022-05-18] MEDS: SUVOREXANT 10 MG TABLET PO PRN (22:00)
[2022-05-19] MEDS ORDERED: chlordiazePOXIDE HCL 10 MG CAPSULE PO PRN
[2022-05-19] MEDS: chlordiazePOXIDE HCL 10 MG CAPSULE PO SCH ×2 (06:00→10:20)
[2022-05-19] MEDS: ONDANSETRON *ODT* 4 MG TABLET SL PRN (06:00)
[2022-05-19] MEDS: METHOCARBAMOL 500 MG TABLET PO PRN (06:04)
[2022-05-19] MEDS: IBUPROFEN 600 MG TABLET (FP) PO PRN (07:28)
[2022-05-19] MEDS: hydrOXYzine PAMOATE 25 MG CAPSULE (FP) PO PRN (09:14)
[2022-05-19] MEDS: PRENATAL VITAMINS W/ FOLIC ACID TABLET (FP) PO SCH (09:14)
[2022-05-19] MEDS: LACTULOSE 20 GM/30 ML UDC (FOR ORAL USE ONLY) PO SCH (09:16)
[2022-05-19] MEDS: NICOTINE 14 MG/24 HOURS TOPICAL PATCH TD SCH (09:16)
[2022-05-19 09:37] VITALS: BP 133/80; PULSE 130; RESP 18; TEMP 97.5
[2022-05-19] MEDS ORDERED: BISACODYL 5 MG TABLET.DR (FP) PO ONE (10:11)
[2022-05-19] MEDS ORDERED: HYDROCORTISONE 1% TOPICAL CREAM 30 GM TUBE TP SCH (10:15)
[2022-05-20] MEDS ORDERED: chlordiazePOXIDE HCL 10 MG CAPSULE PO SCH (05:00)
[2022-05-20] MEDS ORDERED: methaDONE HCL 10 MG TABLET (FOR DETOX USE ONLY) PO ONE (10:00)
[2022-05-21] MEDS ORDERED: chlordiazePOXIDE HCL 10 MG CAPSULE PO ONE (05:00)
== END 2022-05-19 12:02 | disposition left against medical advice (07) | DRG 770 ==
LOC: YASAS 12:36 → Y6N 15:32
PROVIDERS: ADMIT Allergy & Immunology; ATTEND Surgery
PROC: HZ2ZZZZ Detoxification Services for Substance Abuse Treatment (ICD-10-PCS; principal; 2022-05-16)
DX: F11.23 Opioid dependence with withdrawal (principal); F10.230 Alcohol dependence with withdrawal, uncomplicated; F17.210 Nicotine dependence, cigarettes, uncomplicated; F19.282 Other psychoactive substance dependence with psychoactive substance-induced sleep disorder; F19.24 Other psychoactive substance dependence with psychoactive substance-induced mood disorder; F43.10 Post-traumatic stress disorder, unspecified; F41.9 Anxiety disorder, unspecified; F34.1 Dysthymic disorder; E72.20 Disorder of urea cycle metabolism, unspecified; B18.2 Chronic viral hepatitis C; R63.4 Abnormal weight loss; Z68.1 Body mass index [BMI] 19.9 or less, adult; Z28.310 Unvaccinated for COVID-19; Z28.9 Immunization not carried out for unspecified reason; Z88.0 Allergy status to penicillin; Z91.010 Allergy to peanuts
CPT/HCPCS: 36415; 80053; 82140; 83036; 85027; 86780; 87811; C9803-CS; Q0162; U0003; U0005

== ENCOUNTER 2022-08-09 12:30 | Inpatient (IN) | payer OTHER ==
[2022-08-09 12:50] VITALS: BMI 18.3
[2022-08-09] MEDS ORDERED: guaiFENesin 600 MG TABLET.ER (FP) PO PRN (13:13)
[2022-08-09] MEDS ORDERED: DICYCLOMINE HCL 10 MG CAPSULE PO PRN (13:13)
[2022-08-09] MEDS ORDERED: NICOTINE POLACRILEX 2 MG GUM BUC PRN (13:13)
[2022-08-09] MEDS ORDERED: BENZOCAINE/MENTHOL (CHLORASEPTIC ) LOZENGE MM PRN (13:13)
[2022-08-09] MEDS ORDERED: LOPERAMIDE HCL 2 MG CAPSULE PO PRN (13:13)
[2022-08-09] MEDS ORDERED: NALOXONE HCL (KLOXXADO) 8 MG SPRAY NS PRN (13:13)
[2022-08-09] MEDS ORDERED: P-EPHED 60MG/TRIPROLIDI 2.5MG TABLET PO PRN (13:13)
[2022-08-09] MEDS ORDERED: MAG HYDROX/AL HYDROX/SIMETH 30 ML UNIT-DOSE CUP PO PRN (13:13)
[2022-08-09] MEDS ORDERED: MAGNESIUM HYDROX 2400MG/30ML ORAL SUSPENSION 30 ML CUP PO PRN (13:13)
[2022-08-09] MEDS ORDERED: IBUPROFEN 400 MG TABLET (FP) PO PRN (13:13)
[2022-08-09] MEDS ORDERED: POLYETHYLENE GLYCOL (HEALTHYLAX) 3350 17 GM PACKET PO PRN (13:13)
[2022-08-09] MEDS ORDERED: ACETAMINOPHEN 325 MG TABLET (FP) PO PRN (13:13)
[2022-08-09] MEDS ORDERED: BENZONATATE 200 MG CAPSULE PO PRN (13:13)
[2022-08-09] MEDS ORDERED: NALOXONE HCL 0.4 MG/ML VIAL IM PRN (13:13)
[2022-08-09] MEDS ORDERED: NICOTINE 10 MG CARTRIDGE (INHALER) IH PRN (13:13)
[2022-08-09] MEDS ORDERED: ONDANSETRON *ODT* 4 MG TABLET SL PRN (13:13)
[2022-08-09] MEDS ORDERED: BISMUTH SUBSALICYLATE 524 MG/30 ML PO PRN (13:13)
[2022-08-09] MEDS ORDERED: methaDONE HCL 10 MG TABLET (FOR DETOX USE ONLY) PO ONE (13:15)
[2022-08-09] MEDS ORDERED: diazePAM 5 MG TABLET PO ONE (13:15)
[2022-08-09] MEDS ORDERED: methaDONE HCL 10 MG TABLET (FOR DETOX USE ONLY) ONE (13:52)
[2022-08-09] MEDS ORDERED: diazePAM 5 MG TABLET ONE (13:53)
[2022-08-09] MEDS ORDERED: BACITRACIN ZINC 15 GM TUBE TOPICAL OINTMENT TP SCH (14:00)
[2022-08-09] MEDS: diazePAM 5 MG TABLET PO SCH ×2 (17:50→22:44)
[2022-08-09] MEDS: BACITRACIN 0.9 GM PACKET TP SCH (22:40)
[2022-08-09] MEDS: MELATONIN 5 MG TABLETS PO SCH (22:44)
[2022-08-09] MEDS: THIAMINE HCL 100 MG TABLET (FP) PO SCH (22:44)
[2022-08-09] MEDS: METHOCARBAMOL 500 MG TABLET PO PRN (22:45)
[2022-08-10] MEDS: diazePAM 5 MG TABLET PO SCH ×4 (05:59→23:36)
[2022-08-10] MEDS: BACITRACIN 0.9 GM PACKET TP SCH ×2 (10:33→23:35)
[2022-08-10] MEDS: PRENATAL VITAMINS W/ FOLIC ACID TABLET (FP) PO SCH (10:33)
[2022-08-10 10:52] LABS: HEMATOCRIT 40.5 % (35.4-49); HEMOGLOBIN 13.8 GM/dL (11.7-16.9); MCH 28.7 pg (25.7-33.7); MEAN CELL VOLUME 84.3 fl (80-96); MEAN PLT VOLUME 10.2 fl (7.5-11.1); PLATELET COUNT 246 10^3/uL (134-434); RDW 14.4 % (11.9-15.9); WHITE BLOOD COUNT 5.5 K/mm3 (4.0-10.0)
[2022-08-10 11:18] LABS: ALBUMIN 3.3 g/dl (3.4-5.0); BLOOD UREA NITROGEN 18.5 mg/dL (7-18); CREATININE 0.7 mg/dL (0.55-1.3); TOT PROT 7.5 g/dl (6.4-8.2)
[2022-08-10] MEDS: cloNIDine HCL 0.1 MG TABLET PO PRN (13:11)
[2022-08-10] MEDS: hydrOXYzine PAMOATE 25 MG CAPSULE (FP) PO PRN ×2 (13:11→23:37)
[2022-08-10] MEDS: METHOCARBAMOL 500 MG TABLET PO PRN (19:56)
[2022-08-10] MEDS: IBUPROFEN 600 MG TABLET (FP) PO PRN (19:56)
[2022-08-10] MEDS: diazePAM 5 MG TABLET PO PRN (19:57)
[2022-08-10] MEDS: MELATONIN 5 MG TABLETS PO SCH (23:36)
[2022-08-10] MEDS: THIAMINE HCL 100 MG TABLET (FP) PO SCH (23:36)
[2022-08-11] MEDS: diazePAM 5 MG TABLET PO SCH ×3 (05:36→21:30)
[2022-08-11] MEDS: IBUPROFEN 600 MG TABLET (FP) PO PRN (05:40)
[2022-08-11] MEDS: cloNIDine HCL 0.1 MG TABLET PO PRN ×2 (05:41→13:48)
[2022-08-11] MEDS ORDERED: TRIMETHOBENZAMIDE HCL 200MG/2ML INJ IM ONE ×3 (09:28→20:53)
[2022-08-11] MEDS ORDERED: methaDONE HCL 10 MG TABLET (FOR DETOX USE ONLY) PO ONE (10:00)
[2022-08-11] MEDS ORDERED: TETRAHYDROZOLINE HCL EYE DROPS OU PRN (10:11)
[2022-08-11] MEDS ORDERED: COLLOIDAL OATMEAL 1 BAR EACH TP PRN (10:11)
[2022-08-11] MEDS: BACITRACIN 0.9 GM PACKET TP SCH ×2 (10:32→21:29)
[2022-08-11] MEDS: PRENATAL VITAMINS W/ FOLIC ACID TABLET (FP) PO SCH (10:32)
[2022-08-11] MEDS: hydrOXYzine PAMOATE 25 MG CAPSULE (FP) PO PRN (12:20)
[2022-08-11] MEDS: THIAMINE HCL 100 MG TABLET (FP) PO SCH (21:29)
[2022-08-11] MEDS: SUVOREXANT 10 MG TABLET PO PRN (21:30)
[2022-08-12] MEDS: IBUPROFEN 600 MG TABLET (FP) PO PRN (03:38)
[2022-08-12] MEDS: METHOCARBAMOL 500 MG TABLET PO PRN ×3 (03:39→23:25)
[2022-08-12] MEDS: diazePAM 5 MG TABLET PO SCH ×2 (05:30→17:11)
[2022-08-12] MEDS: hydrOXYzine PAMOATE 25 MG CAPSULE (FP) PO PRN ×3 (05:31→23:26)
[2022-08-12] MEDS: BACITRACIN 0.9 GM PACKET TP SCH ×2 (10:18→22:14)
[2022-08-12] MEDS: diazePAM 5 MG TABLET PO PRN (10:20)
[2022-08-12] MEDS: PRENATAL VITAMINS W/ FOLIC ACID TABLET (FP) PO SCH (10:20)
[2022-08-12] MEDS: HYDROCORTISONE 1% TOPICAL CREAM 30 GM TUBE TP SCH ×2 (15:17→22:14)
[2022-08-12] MEDS: THIAMINE HCL 100 MG TABLET (FP) PO SCH (23:25)
[2022-08-12] MEDS: SUVOREXANT 10 MG TABLET PO PRN (23:27)
[2022-08-13] MEDS: hydrOXYzine PAMOATE 25 MG CAPSULE (FP) PO PRN ×3 (05:23→22:09)
[2022-08-13] MEDS ORDERED: diazePAM 5 MG TABLET PO ONE (06:00)
[2022-08-13] MEDS ORDERED: methaDONE HCL 10 MG TABLET (FOR DETOX USE ONLY) PO ONE (10:00)
[2022-08-13] MEDS: PRENATAL VITAMINS W/ FOLIC ACID TABLET (FP) PO SCH (10:13)
[2022-08-13] MEDS: BACITRACIN 0.9 GM PACKET TP SCH ×2 (10:13→22:07)
[2022-08-13] MEDS: HYDROCORTISONE 1% TOPICAL CREAM 30 GM TUBE TP SCH ×2 (10:14→22:34)
[2022-08-13] MEDS ORDERED: busPIRone HCL 10 MG TABLET (FP) PO ONE (11:24)
[2022-08-13 17:07] VITALS: RESP 18
[2022-08-13] MEDS: METHOCARBAMOL 500 MG TABLET PO PRN (17:32)
[2022-08-13] MEDS ORDERED: SUVOREXANT 15 MG TABLET PO PRN (22:00)
[2022-08-13] MEDS: busPIRone HCL 10 MG TABLET (FP) PO SCH (22:08)
[2022-08-13] MEDS: THIAMINE HCL 100 MG TABLET (FP) PO SCH (22:09)
[2022-08-14] MEDS: METHOCARBAMOL 500 MG TABLET PO PRN (05:19)
[2022-08-14] MEDS: hydrOXYzine PAMOATE 25 MG CAPSULE (FP) PO PRN ×2 (05:19→11:46)
[2022-08-14 09:33] VITALS: BP 119/74; PULSE 78; TEMP 98.8
[2022-08-14] MEDS: busPIRone HCL 10 MG TABLET (FP) PO SCH (09:51)
[2022-08-14] MEDS: BACITRACIN 0.9 GM PACKET TP SCH (09:52)
[2022-08-14] MEDS: HYDROCORTISONE 1% TOPICAL CREAM 30 GM TUBE TP SCH (09:52)
[2022-08-14] MEDS: PRENATAL VITAMINS W/ FOLIC ACID TABLET (FP) PO SCH (09:52)
== END 2022-08-14 12:20 | disposition other institution (70) | DRG 773 ==
LOC: YASAS 12:30 → Y3N 14:29
PROVIDERS: ADMIT Allergy & Immunology; ATTEND Surgery
PROC: HZ2ZZZZ Detoxification Services for Substance Abuse Treatment (ICD-10-PCS; principal; 2022-08-09)
DX: F11.23 Opioid dependence with withdrawal (principal); F10.230 Alcohol dependence with withdrawal, uncomplicated; F14.20 Cocaine dependence, uncomplicated; F17.210 Nicotine dependence, cigarettes, uncomplicated; F19.282 Other psychoactive substance dependence with psychoactive substance-induced sleep disorder; F19.280 Other psychoactive substance dependence with psychoactive substance-induced anxiety disorder; F19.24 Other psychoactive substance dependence with psychoactive substance-induced mood disorder; F32.A Depression, unspecified; F41.9 Anxiety disorder, unspecified; B18.2 Chronic viral hepatitis C; R11.10 Vomiting, unspecified; Z28.310 Unvaccinated for COVID-19; Z88.0 Allergy status to penicillin; Z91.010 Allergy to peanuts
CPT/HCPCS: 36415; 80053; 85027; 87635; 87811

== ENCOUNTER 2023-08-02 17:52 | Inpatient (IN) | payer OTHER ==
[2023-08-02 19:32] VITALS: BMI 28.5
[2023-08-02] MEDS ORDERED: ACETAMINOPHEN 325 MG TABLET (FP) PO PRN (23:53)
[2023-08-02] MEDS ORDERED: guaiFENesin 600 MG TABLET.ER (FP) PO PRN (23:53)
[2023-08-02] MEDS ORDERED: chlordiazePOXIDE HCL 25 MG CAPSULE PO PRN (23:53)
[2023-08-02] MEDS ORDERED: NALOXONE (NARCAN) HCL 4 MG/0.1 ML SPRAY NS PRN (23:53)
[2023-08-02] MEDS ORDERED: MAGNESIUM HYDROX 2400MG/30ML ORAL SUSPENSION 30 ML CUP PO PRN (23:53)
[2023-08-02] MEDS ORDERED: IBUPROFEN 400 MG TABLET (FP) PO PRN (23:53)
[2023-08-02] MEDS ORDERED: LOPERAMIDE HCL 2 MG CAPSULE PO PRN (23:53)
[2023-08-02] MEDS ORDERED: DICYCLOMINE HCL 10 MG CAPSULE PO PRN (23:53)
[2023-08-02] MEDS ORDERED: MAG HYDROX/AL HYDROX/SIMETH 30 ML UNIT-DOSE CUP PO PRN (23:53)
[2023-08-02] MEDS ORDERED: NICOTINE POLACRILEX 4 MG GUM BUC PRN (23:53)
[2023-08-02] MEDS ORDERED: BENZONATATE 200 MG CAPSULE PO PRN (23:53)
[2023-08-02] MEDS ORDERED: POLYETHYLENE GLYCOL (HEALTHYLAX) 3350 17 GM PACKET PO PRN (23:53)
[2023-08-02] MEDS ORDERED: BENZOCAINE/MENTHOL (CHLORASEPTIC ) LOZENGE MM PRN (23:53)
[2023-08-02] MEDS ORDERED: NALOXONE HCL 0.4 MG/ML VIAL IM PRN (23:53)
[2023-08-03] MEDS ORDERED: BUPRENORPHINE/NALOXONE 0.5 MG/0.125 MG FILM ONE ×2 (00:30→09:58)
[2023-08-03] MEDS ORDERED: chlordiazePOXIDE HCL 25 MG CAPSULE ONE ×3 (00:30→09:57)
[2023-08-03] MEDS ORDERED: methaDONE HCL 10 MG TABLET (FOR DETOX USE ONLY) ONE ×2 (00:30→09:57)
[2023-08-03] MEDS: chlordiazePOXIDE HCL 25 MG CAPSULE PO SCH (00:38)
[2023-08-03] MEDS: BUPRENORPHINE/NALOXONE 0.5 MG/0.125 MG FILM SL ONE (00:38)
[2023-08-03] MEDS: methaDONE HCL 10 MG TABLET (FOR DETOX USE ONLY) PO ONE (00:39)
[2023-08-03] MEDS: cloNIDine HCL 0.1 MG TABLET PO SCH (07:27)
[2023-08-03] MEDS ORDERED: TETRAHYDROZOLINE HCL EYE DROPS OU PRN (09:03)
[2023-08-03] MEDS ORDERED: NICOTINE 21 MG/24 HOURS TOPICAL PATCH ONE (09:57)
[2023-08-03] MEDS ORDERED: PRENATAL VITAMINS W/ FOLIC ACID TABLET (FP) PO ONE (09:58)
[2023-08-03] MEDS: PRENATAL VITAMINS W/ FOLIC ACID TABLET (FP) PO SCH (10:07)
[2023-08-03] MEDS: NICOTINE 21 MG/24 HOURS TOPICAL PATCH TD SCH (10:07)
[2023-08-03] MEDS: BUPRENORPHINE/NALOXONE 0.5 MG/0.125 MG FILM SL SCH (10:08)
[2023-08-03] MEDS: IBUPROFEN 600 MG TABLET (FP) PO PRN (11:25)
[2023-08-03 11:58] LABS: CHLORIDE 106 mmol/L (98-107); POTASSIUM 4.2 mmol/L (3.5-5.1); SODIUM 137 mmol/L (136-145)
[2023-08-03 12:02] LABS: ALBUMIN 3.1 g/dl (3.4-5.0); ANION GAP 3 mmol/L (4-13); BLOOD UREA NITROGEN 11.6 mg/dL (7-18); CALCIUM 8.7 mg/dL (8.5-10.1); CO2 28 mmol/L (21-32); GLUCOSE,RANDOM 124 mg/dL (74-106)
[2023-08-03 12:05] LABS: CREATININE 0.6 mg/dL (0.55-1.3); SGPT/ALT 21 U/L (13-61)
[2023-08-03 12:06] LABS: SGOT/AST 22 U/L (15-37)
[2023-08-03 12:07] LABS: TOT PROT 6.5 g/dl (6.4-8.2)
[2023-08-03 12:08] LABS: ALK PHOS 80 U/L (45-117)
[2023-08-03 12:11] LABS: HEMATOCRIT 38.2 % (35.4-49); HEMOGLOBIN 13.1 GM/dL (11.7-16.9); MCH 29.7 pg (25.7-33.7); MCHC 34.2 g/dl (32.0-35.9); MEAN PLT VOLUME 9.7 fl (7.5-11.1); PLATELET COUNT 219 10^3/uL (134-434); RBC 4.39 M/mm3 (4.00-5.60); WHITE BLOOD COUNT 5.5 K/mm3 (4.0-10.0)
[2023-08-03] MEDS: THIAMINE 100 MG TABLET PO SCH (22:39)
[2023-08-03] MEDS: MELATONIN 5 MG TABLETS PO SCH (22:39)
[2023-08-03] MEDS: hydrOXYzine PAMOATE 25 MG CAPSULE (FP) PO PRN (22:39)
[2023-08-04] MEDS: chlordiazePOXIDE HCL 25 MG CAPSULE PO SCH (05:42)
[2023-08-04] MEDS: ONDANSETRON *ODT* 4 MG TABLET SL PRN (08:55)
[2023-08-04] MEDS: BUPRENORPHINE/NALOXONE 2 MG/0.5 MG FILM PACKET SL SCH (10:14)
[2023-08-04] MEDS: methaDONE HCL 10 MG TABLET (FOR DETOX USE ONLY) PO ONE (10:14)
[2023-08-04] MEDS: QUEtiapine FUMARATE 50 MG TABLET PO SCH (22:36)
[2023-08-04] MEDS: METHOCARBAMOL 500 MG TABLET PO PRN (22:47)
[2023-08-05] MEDS ORDERED: chlordiazePOXIDE HCL 10 MG CAPSULE PO PRN
[2023-08-05] MEDS: chlordiazePOXIDE HCL 10 MG CAPSULE PO SCH (05:57)
[2023-08-05] MEDS: BUPRENORPHINE/NALOXONE 4 MG/1 MG FILM PACKET SL SCH (10:20)
[2023-08-05] MEDS: HYDROCORTISONE 1% TOPICAL CREAM 30 GM TUBE TP SCH (11:15)
[2023-08-05] MEDS: hydrOXYzine PAMOATE 50 MG CAPSULE (FP) PO PRN (17:15)
[2023-08-06] MEDS: chlordiazePOXIDE HCL 10 MG CAPSULE PO SCH (05:46)
[2023-08-06] MEDS: methaDONE HCL 10 MG TABLET (FOR DETOX USE ONLY) PO ONE (09:41)
[2023-08-06] MEDS: BUPRENORPHINE/NALOXONE 8 MG/2 MG FILM PACKET SL SCH (09:41)
[2023-08-06] MEDS: TRIAMCINOLONE ACET 0.5% OINT 15 GM TUBE TP ONE (15:31)
[2023-08-06] MEDS: BISMUTH SUBSALICYLATE 524 MG/30 ML PO PRN (17:32)
[2023-08-06] MEDS: TRIAMCINOLONE ACET 0.5% OINT 15 GM TUBE TP SCH (22:07)
[2023-08-06] MEDS: QUEtiapine FUMARATE 100 MG TABLET (FP) PO SCH (22:07)
[2023-08-07] MEDS: chlordiazePOXIDE HCL 10 MG CAPSULE PO ONE (05:34)
[2023-08-07 08:34] VITALS: BP 117/71; PULSE 90; RESP 17; TEMP 97.7
[2023-08-07] MEDS: BUPRENORPHINE/NALOXONE 8 MG/2 MG FILM PACKET SL SCH (09:25)
== END 2023-08-07 10:11 | disposition other institution (70) | DRG 773 ==
LOC: YASAS 17:52 → Y3N 08-03 09:57
PROVIDERS: ADMIT Allergy & Immunology; ATTEND Surgery
PROC: HZ2ZZZZ Detoxification Services for Substance Abuse Treatment (ICD-10-PCS; principal; 2023-08-03)
DX: F11.23 Opioid dependence with withdrawal (principal); F10.230 Alcohol dependence with withdrawal, uncomplicated; F14.20 Cocaine dependence, uncomplicated; F17.210 Nicotine dependence, cigarettes, uncomplicated; F19.24 Other psychoactive substance dependence with psychoactive substance-induced mood disorder; F41.9 Anxiety disorder, unspecified; F32.A Depression, unspecified; G47.00 Insomnia, unspecified; L21.9 Seborrheic dermatitis, unspecified; B18.2 Chronic viral hepatitis C; Z86.59 Personal history of other mental and behavioral disorders; Z88.0 Allergy status to penicillin
CPT/HCPCS: 36415; 80053; 80305; 80307; 85027; 86780; 93005; 93010; Q0162